=== PATIENT | female | born 1980 | race Caucasian/White ===

== ENCOUNTER 2023-11-03 16:13 | Emergency (ER) | payer OTHER, SELFPAY ==
[2023-11-03 16:38] VITALS: BP 114/67; PULSE 87; RESP 20; TEMP 37.1; O2SAT 98
--- NOTE | 2023-11-03 17:10 | ED.URI ---
HPI - URI/Sore Throat General Chief Complaint: Upper Respiratory Infection Stated Complaint: Throat History of Present Illness HPI Narrative: 43-year-old female presented for complaint of sore throat for 5 days. Denies any associated symptoms. She has taken Tylenol and DayQuil NyQuil. Related Data Home Medications Medication Instructions Recorded Confirmed bupropion HCl 150 mg tablet,12 hr mg PO 11/03/23 sustained-release dulaglutide 4.5 mg/0.5 mL mg subcut 11/03/23 subcutaneous pen injector (Trulicity) lamotrigine 200 mg tablet mg 11/03/23 meloxicam 15 mg tablet mg 11/03/23 quetiapine 50 mg tablet mg 11/03/23 tizanidine 4 mg capsule mg 11/03/23 Allergies Allergy/AdvReac Type Severity Reaction Status Date / Time No Known Allergies Allergy Verified 11/03/23 16:41 Review of Systems Review of Systems: CONSTITUTIONAL: Denies body aches, fever, chills, or sweats. EYES: Denies visual changes, redness, or discharge. ENT: reports sore throat Denies rhinorrhea, congestion, or otalgia. CARDIOVASCULAR: Denies chest pain, palpitations, or edema. RESPIRATORY: Denies dyspnea. GASTROINTESTINAL: Denies abdominal pain, nausea, vomiting, or diarrhea. SKIN: Denies rash, itching, or wounds. MUSCULOSKELETAL: Denies back pain, joint pain, or myalgia. NEUROLOGIC: Denies headache PMFSH Past Medical History Medical History (Updated 11/03/23 @ 17:17 by Sushma Reeves APRN) Anxiety Exam Narrative: GENERAL: mildly Ill-appearing, no acute distress. EYES: conjunctivae clear ENT: Mucous membranes moist. TM pearly llamas with normal light reflex bilaterally; no tragal tenderness. Oropharynx erythematous Tonsils enlarged 2+ with exudate. No drooling, no hoarseness, no trismus, uvula midline. No tripod positioning, hot potato voice, or soft palate swelling. NECK: Supple. Bilateral anterior cervical lymphadenopathy CHEST: Clear to auscultation, breath sounds equal. No respiratory distress, speaks in full sentences. HEART: Regular rate and rhythm. No murmur heard. SKIN: Warm, dry, no rash. NEURO: Alert and oriented x3. Course Course Emergency Course: Patient is aware of diagnosis, understands and agrees to treatment plan. Anticipatory guidance given. Patient agrees to follow-up as directed and is aware of reasons to seek care at the emergency department. Portions of this record may have been created with voice recognition software Level of Care: Express Care Visit Vital Signs Vital signs: Vital Signs Temperature 98.8 F 11/03/23 16:38 Pulse Rate 87 11/03/23 16:38 Respiratory Rate 20 11/03/23 16:38 Blood Pressure 114/67 11/03/23 16:38 Pulse Oximetry 98 11/03/23 16:38 Temperature 98.8 F 11/03/23 16:38 Pulse Rate 87 11/03/23 16:38 Respiratory Rate 20 11/03/23 16:38 Blood Pressure 114/67 11/03/23 16:38 Pulse Oximetry 98 11/03/23 16:38 MDM - URI/Sore Throat MDM Narrative Medical decision making narrative: POS strep result reviewed with pt. Advise supportive treatments. Patient is appropriate for outpatient treatment and follow-up. Differential Diagnosis Differential diagnosis: Likely upper respiratory infection, viral infection and pharyngitis Discharge Plan Discharge Clinical Impression: Strep pharyngitis Patient Disposition: Home, Self-Care Condition: Stable Instructions: Antibiotic Form, Strep Throat (ED) Additional Instructions: - Take the antibiotic as directed. Fever and sore throat typically resolve within one to three days. Most patients can return to work, after 12 to 24 hours of antibiotic therapy, provided you are fever free and otherwise well. -Eat and drink things that are easy to swallow, like soft foods, cool liquids, tea with honey, or popsicles . -Salt water gargles and/or may use topical anesthetic ( Chloraseptic spray) or lozenges to relieve dryness or throat pain -Alternate Tylenol and ibuprofen as needed for p
[2023-11-03 17:27] LABS: EDSTREPNEGPOS1 Positive (Negative)
== END 2023-11-03 17:15 | disposition home or self-care (01) ==
PROVIDERS: Emergency Provider Nurse Practitioner Family
DX: J02.0 Streptococcal pharyngitis (principal)
CPT/HCPCS: 87880; 99213; G0463

== ENCOUNTER 2024-02-13 18:02 | Emergency (ER) | payer OTHER, SELFPAY ==
[2024-02-13 18:07] VITALS: BP 120/69; PULSE 73; RESP 18; TEMP 36.4; O2SAT 99
--- NOTE | 2024-02-13 18:44 | ED_ITS ---
HPI - Dental/Oral General Chief complaint: Dental/Oral Stated complaint: tooth infection Source: patient Mode of arrival: ambulatory History of Present Illness HPI Narrative: 43-year-old female presented for complaint of right upper back tooth pain for 4 days. She states the tooth broke 4 days ago. Since then she took left over amoxicillin and has applied ice, ibuprofen and numbing medicine without improvement. She is scheduled with the dentist in 1 week. MD Complaint: tooth pain Related Data Home Medications ?Medication ?Instructions ?Recorded ?Confirmed ?Last Taken ?Type bupropion HCl 150 mg tablet,12 hr 150 mg PO BID 11/03/23 11/03/23 Unknown History sustained-release lamotrigine 200 mg tablet 300 mg PO DAILY 11/03/23 11/03/23 Unknown History meloxicam 15 mg tablet 7.5 mg PO BID 11/03/23 11/03/23 Unknown History quetiapine 50 mg tablet See Rx Instructions .Route .COMPLEX 11/03/23 11/03/23 Unknown History Allergies Allergy/AdvReac Type Severity Reaction Status Date / Time No Known Allergies Allergy Verified 02/13/24 18:15 Review of Systems Review of Systems: CONSTITUTIONAL: Denies body aches, fever, chills ENT: Denies rhinorrhea, congestion, sore throat, or otalgia. Reports dental pain CARDIOVASCULAR: Denies chest pain, palpitations RESPIRATORY: Denies cough or dyspnea. SKIN: Denies rash, itching, or wounds. MUSCULOSKELETAL: Denies myalgia. NEUROLOGIC: Denies headache, numbness, tingling, or weakness. [facility] Past Medical History Medical History Anxiety Comments At time of signature, I have reviewed and agree with nursing past medical, surgical, social and family history unless otherwise noted. Please see nursing chart for further information. There is no relevant family history pertinent to the presenting complaint Exam Narrative: GENERAL: Appears in pain; no acute distress. HEAD: Normocephalic, atraumatic. EYES: EOMI. No redness or drainage. Conjunctivae normal. ENT: Dental pain location of #1, no erythema or swelling to gums; endorses tender with palpation. Mucous membranes pink and moist. TMs normal bilaterally. Throat normal. no dysphagia, odynophagia, dysphonia, or dyspnea. No uvular deviation or soft palate edema. NECK: Normal AROM. No lymphadenopathy. no induration below mandible, no neck pain CHEST: No respiratory distress. Clear to auscultation. HEART: Regular rate and rhythm. No murmur appreciated. SKIN: Warm, dry, no rash. Normal skin turgor. NEURO: No focal deficits. Alert and oriented x3. Gait steady. Course Course Emergency Course: Patient is aware of diagnosis, understands and agrees to treatment plan. Anticipatory guidance given. Patient agrees to follow-up as directed and is aware of reasons to seek care at the emergency department. Portions of this record may have been created with voice recognition software Level of Care: Express Care Visit Vital Signs Vital signs: Vital Signs Temperature 97.6 F 02/13/24 18:07 Pulse Rate 73 02/13/24 18:07 Respiratory Rate 18 02/13/24 18:07 Blood Pressure 120/69 02/13/24 18:07 Pulse Oximetry 99 02/13/24 18:07 Oxygen Delivery Room Air 02/13/24 18:07 Temperature 97.6 F 02/13/24 18:07 Pulse Rate 73 02/13/24 18:07 Respiratory Rate 18 02/13/24 18:07 Blood Pressure 120/69 02/13/24 18:07 Pulse Oximetry 99 02/13/24 18:07 Oxygen Delivery Room Air 02/13/24 18:07 MDM - Dental/Oral MDM Narrative Medical decision making narrative: Patients pain and complaint coupled with physical findings are consistent with dentalgia/ dental abscess There are no focal signs of space occupying lesions that are compromising to the airway; Patient is non-toxic appearing. The floor of the mouth is soft with no signs of Adair's Angina. Patient is without trismus or drooling and able to swallow secretions. Patient is felt appropriate for discharge home with dental follow up. Differential Diagnosis Differential diagnosis: Likely gingival abscess, dental caries, toothache, dental abscess, fracture of tooth and aphthous ulcer Discharge Plan Discharge Clinical Impression: Toothache Patient Disposition: Home, Self-Care Condition: Stable Instructions: Antibiotic Form, Toothache (ED) Additional Instructions: Take antibiotic as directed May apply heat or ice to the face Gentle brushing and flossing. Rinse mouth with warm salt water at least 2 times a day. Alternate Tylenol and ibuprofen as needed for pain Follow-up with the dentist as scheduled Go to the ER for worsening symptoms or concerns Patient Language: Frisian Prescriptions: New ibuprofen 800 mg tablet 800 mg PO TID PRN (Reason: pain) Qty: 15 0RF lidocaine HCl [Lidocaine Viscous] 2 % solution 1 applic mucous membrane TID PRN (Reason: pain) Qty: 100 0RF Rx Instructions: apply with cotton swab to site of pain amoxicillin-pot clavulanate 875-125 mg tablet 1 tablet PO Q12H 7 Days Qty: 14 0RF No Action bupropion HCl 150 mg tablet sustained-release 12 hr 150 mg PO BID lamotrigine 200 mg tablet 300 mg PO DAILY meloxicam 15 mg tablet 7.5 mg PO BID quetiapine 50 mg tablet See Rx Instructions .ROUTE .COMPLEX Rx Instructions: as prescribed Follow-up/Referrals: PHYSICIAN NOT ON STAFF,NONSTAFF [Primary Care Provider] - Time of Disposition: 18:52
== END 2024-02-13 18:55 | disposition home or self-care (01) ==
PROVIDERS: Emergency Provider Nurse Practitioner Family
DX: K08.89 Other specified disorders of teeth and supporting structures (principal); F41.9 Anxiety disorder, unspecified
CPT/HCPCS: 99213; G0463

== ENCOUNTER 2024-05-10 15:13 | Emergency (ER) | payer OTHER, SELFPAY ==
[2024-05-10 15:21] VITALS: BP 130/73; PULSE 65; RESP 16; TEMP 36.1; O2SAT 99
--- NOTE | 2024-05-10 15:25 | ED.WOUNDLAC ---
HPI - Wound/Laceration General Chief Complaint: Wound/Laceration Stated Complaint: remove stitches Time Seen by Provider: 05/10/24 15:25 Source: patient, RN notes reviewed and old records reviewed Mode of arrival: ambulatory Limitations: no limitations History of Present Illness HPI narrative: 44-year-old presents to the [facility] requesting to have sutures removed that were placed by her primary doctor. States that she had a cyst removed. Procedure was done 1st which. Patient brought in her my chart reviewed the discharge papers which specifically said that she can have the sutures removed by her primary, urgent care or ER. Patient is clinic with [facility] in [facility] Related Data Home Medications ?Medication ?Instructions ?Recorded ?Confirmed ?Last Taken ?Type bupropion HCl 150 mg tablet,12 hr 150 mg PO BID 11/03/23 11/03/23 Unknown History sustained-release lamotrigine 200 mg tablet 300 mg PO DAILY 11/03/23 11/03/23 Unknown History meloxicam 15 mg tablet 7.5 mg PO BID 11/03/23 11/03/23 Unknown History quetiapine 50 mg tablet See Rx Instructions .Route .COMPLEX 11/03/23 11/03/23 Unknown History Allergies Allergy/AdvReac Type Severity Reaction Status Date / Time No Known Allergies Allergy Verified 05/10/24 15:25 Review of Systems Review of Systems: All systems reviewed & are unremarkable except as noted in HPI and below Constitutional: Constitutional: Reports no additional constitutional complaints ENT: Reports system reviewed and no additional complaints, except as documented Cardiovascular: Cardiovascular: Reports no additional cardiovascular complaints, Denies chest pain and Denies dyspnea Respiratory: Respiratory: Reports no additional respiratory complaints, Denies chest congestion, Denies cough and Denies dyspnea Musculoskeletal: Musculoskeletal: Reports no additional musculoskeletal complaints Integumentary/Breasts: Skin/Breast: Reports as per HPI [facility] Past Medical History Medical History Anxiety Comments At the time of my signature, I reviewed and agree with the nursing past medical, surgical, social, and family history. There is no relevant family history pertinent to the patient complaint. Exam Const: General: cooperative, healthy appearing, comfortable, no acute distress, well developed, alert and well nourished Nutritional Appearance: well nourished Orientation/consciousness: patient oriented x3 Limitations: no limitations HENMT: Head: normal to inspection Eyes: General: appearance normal, both eyes and all related structures Alignment and Position: alignment normal Neck: Neck: normal visual inspection, full ROM, no lymphadenopathy and no meningeal signs Chest: Chest palpation & inspection: normal inspection of the chest Resp: Effort & Inspection: normal respiratory effort and able to speak in complete sentences Auscultation: clear to auscultation bilaterally, no crackles, no rales, no rhonchi and no wheezes Cardio: Rate: regular rate Skin: General skin exam: normal color and no rashes or lesions noted Other: well-approximated he healed area to the left rib area. Patient reports that she had an area removed, sutured with 8 sutures. No signs of infection some skin irritation noted from the tape. A no cellulitic changes. Neuro: General: patient oriented x3, gait normal, moves all extremities and no meningeal signs Cognition (Neuro): normal cognition Speech: normal speech Gait exam (Neuro): Normal gait present Extrem: General: normal to inspection, full ROM, capillary refill normal and normal gait Psych: Appearance: grossly normal and well kempt Mental Status: mental status grossly normal Speech and movement: Normal speech and movement present and Clear speech present Affect: normal affect Attitude: cooperative Course Course Emergency Course: Area cleaned with Betadine, patted dry, 8 sutures removed. Patient tolerated well Level of Care: Express Care Visit Vital Signs Vital signs: Vital Signs Temperature 97 F L 05/10/24 15:21 Pulse Rate 65 05/10/24 15:21 Respiratory Rate 16 05/10/24 15:21 Blood Pressure 130/73 05/10/24 15:21 Pulse Oximetry 99 05/10/24 15:21 Oxygen Delivery Room Air 05/10/24 15:21 Temperature 97 F L 05/10/24 15:21 Pulse Rate 65 05/10/24 15:21 Respiratory Rate 16 05/10/24 15:21 Blood Pressure 130/73 05/10/24 15:21 Pulse Oximetry 99 05/10/24 15:21 Oxygen Delivery Room Air 05/10/24 15:21 Reviewed MDM - Wound/Laceration MDM Narrative Medical decision making narrative: patient sitting comfortably in exam room. Nontoxic, vitals stable.\ Patient presents for suture removal, reviewed the note in her my chart. Sutures removed patient appropriate for outpatient treatment and follow-up Discharge instructions reviewed with patient, as well as provided in writing per nursing staff. The instructions also include specific and strict return/GO TO THE ER as well as f/u information. All questions have been answered, and the patient deny any further questions with discharge and discharge plan. Some parts of this dictation were generated by voice recognition software and may contain typographical and/or grammatical inaccuracies. Differential Diagnosis Differential diagnosis: Likely laceration and other Critical Care Time Critical Care Time Critical Care Time: No Discharge Plan Discharge Clinical Impression: Encounter for removal of sutures Patient Disposition: Home, Self-Care Condition: Stable Instructions: Acute Wounds (ED) Additional Instructions: keep area clean and dry. Wash with warm soapy water, pat dry. You can apply Aquaphor or bacitracin to the area follow-up with primary care provider for new or worsening symptoms go directly to the emergency room Patient Language: Maltese Prescriptions: No Action bupropion HCl 150 mg tablet sustained-release 12 hr 150 mg PO BID lamotrigine 200 mg tablet 300 mg PO DAILY meloxicam 15 mg tablet 7.5 mg PO BID quetiapine 50 mg tablet See Rx Instructions .ROUTE .COMPLEX Rx Instructions: as prescribed ibuprofen 800 mg tablet 800 mg PO TID PRN (Reason: pain) Qty: 15 0RF lidocaine HCl [Lidocaine Viscous] 2 % solution 1 applic mucous membrane TID PRN (Reason: pain) Qty: 100 0RF Rx Instructions: apply with cotton swab to site of pain Follow-up/Referrals: PHYSICIAN NOT ON STAFF,NONSTAFF [Primary Care Provider] - Time of Disposition: 15:43
--- OUTSIDE RECORDS SUMMARY | 2024-05-10 16:46 | XMS_ITS | Referral Summary ---
Author Organization [facility] [place] [address] Address [address] [place] [address] Care Team Providers Care Principal Programmer Name Role Phone Unknown, Geovannanfile Primary Care Provider Unavail able Allergies No known active allergies Medications benzonatate (TESSALON) 100 mg capsule Take 1 capsule (100 mg total) by mouth 3 (three) times a day as needed 03/13/2023 Active buPROPion SR (WELLBUTRIN SR) 150 mg 12 hr tablet Take 1 tablet (150 mg total) by mouth 2 (two) times a day 11/02/2023 Active Trulicity 4.5 mg/0.5 mL pen injector Inject 0.5 mL (4.5 mg total) under the skin once a week 10/30/2023 Active gabapentin (NEURONTIN) 100 mg capsule Take 1 capsule (100 mg total) by mouth 07/21/2023 Active lamoTRIgine (LaMICtal) 200 mg tablet TAKE 1 & 1/2 (ONE & ONE-HALF) TABLETS BY MOUTH TWICE DAILY 10/31/2023 Active predniSONE (DELTASONE) 50 mg tablet Take 1 tablet (50 mg) by mouth daily 11/03/2023 Active QUEtiapine (SEROquel) 50 mg tablet 1 tablet (50 mg total) 05/26/2023 Active TiZANidine (ZANAFLEX) 4 mg capsule Take 1 capsule (4 mg total) by mouth 08/29/2023 Active naproxen (Naprosyn) 500 mg tablet Take 1 tablet (500 mg total) by mouth 2 (two) times a day with meals 30 tablet 11/10/2023 Active Active Problems No known active problems Social History Tobacco Use Types Packs/Day Years Used Date Smoking Tobacco: Never Assessed Comments Unknown Sex and Gender Information Value Date Recorded Sex Assigned at Not on file Legal Sex Female 1:33 PM CDT Gender Identity Not on file Sexual Orientation Not on file Last Filed Vital Signs Vital Sign Reading Time Taken Comments Blood Pressure 104/70 11/10/2023 5:13 PM CDT Pulse 74 11/10/2023 5:13 PM CDT Temperature 36.2 C (97.1 F) 11/10/2023 5:13 PM CDT Respiratory Rate 18 11/10/2023 5:13 PM CDT Oxygen Saturation 96% 11/10/2023 5:13 PM CDT Inhaled Oxygen Concentration - - Weight 102.5 kg (226 lb) 11/10/2023 5:13 PM CDT Height 168.9 cm (5' 6.5 ) 11/10/2023 5:13 PM CDT Body Mass Index 35.93 11/10/2023 5:13 PM CDT Plan of Treatment Not on file Insurance [facility] Care Teams Principal Programmer Relationship Specialty Start Date End Date Unknown, Notinfile PCP - General 04/22/23
--- OUTSIDE RECORDS SUMMARY | 2024-05-10 16:46 | XMS_ITS | Clinical Summary ---
Author Organization [facility] [place] [address] Address [address] [place] [address] Care Team Providers Care Shop Laborer Name Role Phone Unknown, Geovannanfile Primary Care [...] Active Active Problems No known active problems Surgical History Surgery Date Site/Laterality Comments FLUORO GUIDED ASPIRATION OR INJECTION LARGE JOINT BILATERAL 05/03/2022 Bilateral FLUORO GUIDED ASPIRATION OR INJECTION LARGE JOINT BILATERAL 03/08/2020 Bilateral FLUORO GUIDED ASPIRATION OR INJECTION LARGE JOINT BILATERAL 10/07/2019 Bilateral FLUORO GUIDED ASPIRATION OR INJECTION LARGE JOINT BILATERAL 03/31/2019 Bilateral US GUIDED THORACENTESIS 05/15/2020 N/A US GUIDED THORACENTESIS 03/10/2020 N/A Social History Tobacco Use Types Packs/Day Years Used Date Smoking Tobacco: Never Assessed Comments Unknown Sex and Gender Information Value Date Recorded Sex Assigned at Not on file Legal Sex Female 1:33 PM CDT Gender Identity Not on file Sexual Orientation Not on file Obstetrics History Last Filed Vital Signs Vital Sign Reading [...] 11/10/2023 5:13 PM CDT Plan of Treatment Health Maintenance Due Date Last Done Comments Cervical Cancer Screening 1978 Colon Cancer Screening-Colonoscopy 1978 Depression Screening 1978 Hepatitis C Screening 1978 Hepatitis B Screening 1996 Regular Well Visit/Exam 18-64 1996 Breast Cancer Screening-Mammogram 10/31/2021 10/31/2020, 10/31/2020, 06/17/2018 Influenza Vaccine (#1) 2023 DTaP/Tdap/Td Vaccine (2 - Td or Tdap) 03/31/2029 03/31/2019 HPV Vaccines Aged Out No longer eligi ble based on patient's age to complete this topic Pneumococcal vaccine <65 Aged Out No longer eligible based on patient's age to complete this topic Insurance [facility] Care Teams Shop Laborer Relationship Specialty Start Date End Date Unknown, Notinfile PCP - General 04/22/23
== END 2024-05-10 15:45 | disposition home or self-care (01) ==
PROVIDERS: Emergency Provider Nurse Practitioner
DX: Z48.02 Encounter for removal of sutures (principal); F41.9 Anxiety disorder, unspecified
CPT/HCPCS: 99211; G0463

== ENCOUNTER 2024-05-17 15:32 | Emergency (ER) | payer OTHER, SELFPAY ==
[2024-05-17 15:38] VITALS: BP 122/66; PULSE 64; RESP 16; TEMP 36.4; O2SAT 99
--- OUTSIDE RECORDS SUMMARY | 2024-05-17 17:33 | XMS_ITS | Clinical Summary ---
Author Organization [facility] Address [address] [place] [address] Care Team Providers Care Orthopedic Dentist Name Role Phone Cj Almazan Primary Care Provider [phone] Unknown, Notinfile Unavailable Unavailable Allergies No known active allergies Medications benzonatate [...] day with meals 30 tablet 11/10/2023 Active ketorolac (TORADOL) 10 mg tablet Take 1 tablet (10 mg total) by mouth every 6 (six) hours as needed for pain 20 tablet 05/11/2024 Active HYDROcodone-jaime taminophen (NORCO) 5-325 mg per tabletIndicatio ns:Pain Take 1 tablet by mouth every 6 (six) hours as needed for pain for up to 10 doses 10 tablet 05/11/2024 Active cetirizine (ZyrTEC) 10 mg tablet Take 1 tablet (10 mg total) by mouth daily 30 tablet 05/11/2024 06/11/19 25 Active hydrOXYzine (ATARAX) 25 mg tablet Take 1 tablet (25 mg total) by mouth every 6 (six) hours 12 tablet 05/11/2024 Active cephalexin (KEFLEX) 500 mg capsuleIndicati ons:Skin/Soft Tissue Infection Take 1 capsule (500 mg total) by mouth 3 (three) times a day for 5 days 15 capsule 05/11/2024 05/17/19 25 Active Problems No known active problems Encounters Date Type Department Care Team Description 05/11/2024 7:02 PM CDT - 05/11/2024 8:03 PM CDT Emergency [facility] Emergency Department [address] [place] [id number] Visit for wound check (Primary Dx) Discharge Disposition: Discharge to home or self care from Last 3 Months Surgical History Surgery Date Site/Laterality Comments FLUORO [...] Years Used Date Smoking Tobacco: Never Assessed Personal Safety Answer Date Recorded Have you ever been in or are you currently in a harmful physical or emotional relationship or is someone making you feel afraid or unsafe? Denies 05/11/2024 Comments Unknown Sex and Gender Information Value Date Recorded Sex Assigned at Not on file Legal Sex Female 1:33 PM CDT Gender Identity Not on file Sexual Orientation Not on file Obstetrics History Last Filed Vital Signs Vital Sign Reading Time Taken Comments Blood Pressure 120/74 05/11/2024 8:03 PM CDT Pulse 74 05/11/2024 8:03 PM CDT Temperature 36.5 C (97.7 F) 05/11/2024 6:07 PM CDT Respiratory Rate 20 05/11/2024 8:03 PM CDT Oxygen Saturation 98% 05/11/2024 8:03 PM CDT Inhaled Oxygen Concentration - - Weight 104.8 kg (231 lb) 05/11/2024 6:07 PM CDT Height 167.6 cm (5' 6 ) 05/11/2024 6:07 PM CDT Body Mass Index 37.28 05/11/2024 6:07 PM CDT Plan of Treatment Health Maintenance Due Date Last Done Comments Cervical Cancer Screening 1978 Colon Cancer Screening-Colonoscopy 1978 Depression Screening 1978 Hepatitis C Screening 1978 Hepatitis B Screening 1996 Regular Well Visit/Exam 18-64 1996 Breast Cancer Screening-Mammogram 10/31/2021 10/31/2020, 10/31/2020, 06/17/2018 Influenza Vaccine (Season Ended) 2024 DTaP/Tdap/Td Vaccine (2 - Td or Tdap) 03/31/2029 03/31/2019 HPV Vaccines Aged Out No longer eligi ble based on patient's age to complete this topic Pneumococcal vaccine <65 Aged Out No longer eligible based on patient's age to complete this topic Insurance [facility] Care Teams Orthopedic Dentist Relationship Specialty Start Date End Date Cj Almazan DO [address] [place], [place] [id number] PCP - General Family Medicine 05/11/24 Unknown, Notinfile 05/11/24
--- OUTSIDE RECORDS SUMMARY | 2024-05-17 17:33 | XMS_ITS | Referral Summary ---
Author Organization [facility] Address [address] [place] [address] Care Team Providers Care Mine Car Repairer Name Role Phone Cj Almazan DO Primary Care Provider [phone] Unknown, Notinfile Unavailable Unavailable Encounters Date Type Department Care Team Description 05/11/2024 7:02 PM CDT - 05/11/2024 8:03 PM CDT Emergency [facility] Emergency Department [address], [place] [id number] Visit for wound check (Primary Dx) Discharge Disposition: Discharge to home or self care from Last 3 Months Allergies No known active allergies Medications benzonatate [...] 25 Active Problems No known active problems Social [...] 05/11/2024 6:07 PM CDT Plan of Treatment Not on file Insurance Care Teams Mine Car Repairer Relationship Specialty Start Date End Date Cj Almazan DO [address] [place], [place] [id number] PCP - General Family Medicine 05/11/24 Unknown, Notinfile 05/11/24
--- NOTE | 2024-05-17 18:56 | ED.WOUNDLAC ---
HPI - Wound/Laceration General Chief Complaint: Wound/Laceration Stated Complaint: Wound Check Source: patient and RN notes reviewed Mode of arrival: ambulatory Limitations: no limitations History of Present Illness HPI narrative: 44-year-old female presents to the [facility] for a wound check. Patient is that she had a cyst removed to the left lateral part of her back that were placed by her PCP. She came here approximately a week ago to get the sutures removed from it. On May 11 she then reports she went to the ER because she said that the cyst busted open after sutures were removed. She says he was discharged with keflex and Steri-Strips. She is worried the wound is infected again. She denies any pain, abnormal discharge, redness, swelling, fevers or any other concerns. Related Data Home Medications ?Medication ?Instructions ?Recorded ?Confirmed ?Last Taken ?Type bupropion HCl 150 mg tablet,12 hr 150 mg PO BID 11/03/23 11/03/23 Unknown History sustained-release lamotrigine 200 mg tablet 300 mg PO DAILY 11/03/23 11/03/23 Unknown History meloxicam 15 mg tablet 7.5 mg PO BID 11/03/23 11/03/23 Unknown History quetiapine 50 mg tablet See Rx Instructions .Route .COMPLEX 11/03/23 11/03/23 Unknown History Allergies Allergy/AdvReac Type Severity Reaction Status Date / Time No Known Allergies Allergy Verified 05/17/24 15:38 Review of Systems Review of Systems: CONSTITUTIONAL: Denies fever, chills, or sweats. EYES: Denies visual changes, redness, or discharge. ENT: Denies rhinorrhea, congestion, sore throat, or otalgia. CARDIOVASCULAR: Denies chest pain, palpitations, or edema. RESPIRATORY: Denies cough or dyspnea. GASTROINTESTINAL: Denies abdominal pain, nausea, vomiting, or diarrhea. GENITOURINARY: Denies dysuria or hematuria. SKIN: Denies rash or itching. Positive for wound MUSCULOSKELETAL: Denies back pain, joint pain, or myalgia. NEUROLOGIC: Denies headache, numbness, or weakness. PSYCHIATRIC: Denies anxiety or depression. All other systems reviewed are negative, except as documented in HPI. [facility] Past Medical History Medical History Anxiety Comments At the time of my signature, I reviewed and agree with the nursing past medical, surgical, social, and family history. There is no relevant family history pertinent to the patient complaint. Exam Narrative: GENERAL: This is a well-nourished, well-developed adult, in no apparent distress. They are non ill-appearing, nontoxic appearing. HEAD: normocephalic, atraumatic. EYES: Sclera clear/white. Vision is grossly intact. EARS: External ears normal, Hearing grossly intact. NOSE: External nose normal THROAT: Mucous membranes moist, NECK: Normal range of motion CARDIOVASCULAR: Regular rate and rhythm RESPIRATORY: Normal respiratory rate, and breathing is nonlabored, no respiratory distress SKIN: Left lateral mid back: Healing wound with granulation tissue measuring approximately 3 centimeters by 3 cm. Wound is at depth at skin surface. There is no signs of infection, no surrounding cellulitis or exudate. Steri-Strips are in place prior to arrival. NEURO: awake, alert, and oriented to person, place and time. There were no obvious focal neurologic abnormalities. BACK: Nontender without deformity. Course Course Emergency Course: Patient is aware of diagnosis, understands and agrees to treatment plan. Anticipatory guidance given. Patient agrees to follow-up as directed and is aware of reasons to seek care at the emergency department. Portions of this record may have been created with voice recognition software Level of Care: Express Care Visit Vital Signs Vital signs: Vital Signs Temperature 97.5 F L 05/17/24 15:38 Pulse Rate 64 05/17/24 15:38 Respiratory Rate 16 05/17/24 15:38 Blood Pressure 122/66 05/17/24 15:38 Pulse Oximetry 99 05/17/24 15:38 Oxygen Delivery Room Air 05/17/24 15:38 Temperature 97.5 F L 05/17/24 15:38 Pulse Rate 64 05/17/24 15:38 Respiratory Rate 16 05/17/24 15:38 Blood Pressure 122/66 05/17/24 15:38 Pulse Oximetry 99 05/17/24 15:38 Oxygen Delivery Room Air 05/17/24 15:38 Reviewed MDM - Wound/Laceration MDM Narrative Medical decision making narrative: Patient presents wound check, the wound appears to be healing well. Steri-Strips were removed as a been there for a week in the surface of the wound is at the skin depth. Band-Aid applied after removing Steri-Strips. Patient advised to apply nonadherent dressings and wound care was discussed. Discussed physical exam findings. Advised supportive measures and signs/symptoms to go to the ER. Pt is appropriate for outpt treatment and f/u. Differential Diagnosis Differential diagnosis: Likely abscess and other (Cellulitis, ulcer, ringworm) Critical Care Time Critical Care Time Critical Care Time: No Discharge Plan Discharge Clinical Impression: Visit for wound check Patient Disposition: Home Condition: Stable Instructions: Cellulitis (ED) Additional Instructions: Your wound is healing well. Please keep it covered until it is healed completely. Please use a nonstick dressing such as the Band-Aid or a nonadherent Telfa. Please wash it daily with mild soap and water. If you develop redness, green or yellow discharge, fevers, pain to the wound, or red streaking from the wound please go to the ER for further evaluation Patient Language: Thai Prescriptions: No Action bupropion HCl 150 mg tablet sustained-release 12 hr 150 mg PO BID lamotrigine 200 mg tablet 300 mg PO DAILY meloxicam 15 mg tablet 7.5 mg PO BID quetiapine 50 mg tablet See Rx Instructions .ROUTE .COMPLEX Rx Instructions: as prescribed ibuprofen 800 mg tablet 800 mg PO TID PRN (Reason: pain) Qty: 15 0RF Follow-up/Referrals: UNKNOWN,DOCTOR [Primary Care Provider] - Time of Disposition: 16:11
== END 2024-05-17 16:16 | disposition home or self-care (01) ==
DX: Z48.01 Encounter for change or removal of surgical wound dressing (principal); F41.9 Anxiety disorder, unspecified
CPT/HCPCS: 99212; G0463

== ENCOUNTER 2024-08-17 16:53 | Emergency (ER) | payer OTHER, SELFPAY ==
[2024-08-17 16:56] VITALS: BP 129/90; PULSE 73; RESP 20; TEMP 36.6; O2SAT 99
--- OUTSIDE RECORDS SUMMARY | 2024-08-17 16:56 | XMS_ITS | Clinical Summary ---
Author Organization [facility] Address [address] [place] [address] Care Team Providers Care Legal Billing Coordinator Name Role Phone Unknown, Notinfile Unavailable Unavailable Bambi Calzada NP Primary Care Provider [phone] Allergies No known active allergies Medications lamoTRIgine (LaMICtal) 200 mg tablet Take 1.5 tablets (300 mg total) by mouth 2 (two) times a day 270 tablet 3 06/18/19 25 026 Active ondansetron ODT (ZOFRAN-ODT) 4 mg disintegrating tablet Take 1 tablet (4 mg total) by mouth every 8 (eight) hours as needed for nausea 20 tablet 07/02/19 25 Active naltrexone (DEPADE) 50 mg tablet Take 1 tablet (50 mg total) by mouth daily 30 tablet 2 07/22/19 25 026 Active QUEtiapine (SEROquel) 50 mg tablet Take 1 tablet (50 mg total) by mouth nightly 90 tablet 3 07/22/19 25 026 Active meloxicam (MOBIC) 15 mg tablet Take 1 tablet (15 mg total) by mouth daily 90 tablet 3 07/22/19 25 026 Active buPROPion XL (WELLBUTRIN XL) 300 mg 24 hr tablet Take 1 tablet (300 mg total) by mouth every morning 90 tablet 3 07/22/19 25 026 Active varenicline tartrate (CHANTIX RONNA) 0.5 mg (11)- 1 mg (42) tablet USE DIRECTED ON PACKAGE INSTRUCTION S, TRY TO QUIT SMOKING AFTER 1 WEEK 53 tablet 07/28/19 25 Active fluoride, sodium, 1.1 % cream Apply 1 Units to teeth daily 51 g 1 07/30/19 25 026 Active buPROPion SR (WELLBUTRIN SR) 150 mg 12 hr tablet Take 1 tablet (150 mg total) by mouth 2 (two) times a day 11/02/19 24 025 Discontinued(A lternate therapy) QUEtiapine (SEROquel) 50 mg tablet 1 tablet (50 mg total) 05/26/19 24 025 Discontinued(R eorder) metFORMIN XR (GLUCOPHAGE XR) 500 mg 24 hr tablet 1 tablet (500 mg total) 04/01/19 25 025 Discontinued(P atient Reported) meloxicam (MOBIC) 15 mg tablet Take 1 tablet (15 mg total) by mouth 05/29/19 25 025 Discontinued(R eorder) naltrexone (DEPADE) 50 mg tablet Take 1 tablet (50 mg total) by mouth daily 30 tablet 2 06/18/19 25 025 Discontinued(R eorder) varenicline tartrate (CHANTIX RONNA) 0.5 mg (11)- 1 mg (42) tablet Use as directed on package instruction s, try to quit smoking after 1 week. 53 tablet 06/18/19 25 025 Discontinued fluoride, sodium, 1.1 % cream Apply 1 Units to teeth daily 51 g 1 06/18/19 25 025 Discontinued(R eorder) Active Problems Problem Noted Date Diagnosed Date Screening for malignant neoplasm of colon 2024 Assessment & Plan (07/21/2024 8:12 PM CDT): Orders: Ambulatory referral to Gastroenterology; Future Chronic pain of left knee 07/21/2024 Assessment & Plan (07/21/2024 8:12 PM CDT): Cigarette nicotine dependence in remission 07/21 Assessment & Plan (07/21/2024 8:12 PM CDT): Encounter for weight management 06/17/2024 Assessment & Plan (07/21/2024 8:12 PM CDT): Assessment & Plan (06/17/2024 7:35 PM CDT): Arthralgia 06/17/2024 Assessment & Plan (06/17/2024 7:35 PM CDT): Chronic pain of both shoulders 06/17/2024 Assessment & Plan (06/17/2024 7:35 PM CDT): Orders: Ambulatory referral to Orthopedic Surgery; Future Class 2 obesity without seri ous comorbidity with body mass index (BMI) of 37.0 to 37.9 in adult 06/17/2024 Assessment & Plan (07/21/2024 8:12 PM CDT): Assessment & Plan (06/17/2024 7:35 PM CDT): BMI 37.67. Discussed healthy diet, routine exercise and encouraged weight loss. Is already on bupropion and will add naltrexone in attempt to facilitate further weight loss. Encounter for medical examination to establish c are 06/16/2024 Assessment & Plan (06/17/2024 7:35 PM CDT): Need for hepatitis C screening test 06/16/2024 Assessment & Plan (06/17/2024 7:35 PM CDT): Encounter for screening mamm ogram for malignant neoplasm of breast 06/16/2024 Assessment & Plan (06/17/2024 7:35 PM CDT): Orders: SCREENING MAMMOGRAM BILATERAL W PEPITO Screening for colon cancer 06/16/2024 Assessment & Plan (06/17/2024 7:35 PM CDT): Orders: Ambulatory referral to Gastroenterology; Future Need for hepatitis B screening test 06/16/2024 Assessment & Plan (06/17/2024 7:35 PM CDT): Chronic right shoulder pain 08/29/2022 Biliary dyskinesia 03/10/2020 Esophageal reflux 03/10/2020 Irritable bowel syndrome 03/10/2020 Marijuana abuse 03/10/2020 Tobacco smoker within last 12 months 03/10/2020 Cocaine abuse 02/25/2019 QT prolongation 02/25/2019 Bipolar affective disorder in remission 02/24/19 Assessment & Plan (06/17/2024 7:35 PM CDT): Chronic migraine without aura 02/20/2019 Diphenhydramine overdose, in tentional self-harm, initial encounter 02/20/2019 Calcium channel eneida overdose 02/20/2019 Polysubstance overdose 02/20/2019 Posttraumatic stress disorder 11/08/2011 Encounters Date Type Department Care Team Description 08/16/2024 Telephone [facility] [address] [place] [phone] Roxanne Guerra, DO reschedule appt 07/22/2024 Telephone [facility] Primary Care at [address] [phone] Bambi Calzada, SWITCH HOUSE OPERATOR Forms Request 07/21/2024 3:30 PM CDT Office Visit [facility] Primary Care at [address] [phone] Bambi Calzada NP Encounter for weight management (Primary Dx); Chronic pain of left knee; Cigarette nicotine dependence in remission; Screening for malignant neoplasm of colon; Class 2 obesity without serious comorbidity with body mass index (BMI) of 37.0 to 37.9 in adult, unspecified obesity type 07/19/2024 Telephone [facility] Primary Care at [address] [place] [phone] Bambi Calzada, SWITCH HOUSE OPERATOR Forms Request 07/08/2024 Telephone [facility] [address] [place] [address] [address] [place] [phone] Keyur Granados MD Bilateral shoulder referral 07/01/2024 Orders Only [facility] Primary Care at [address] [place] [phone] Bambi Calzada NP 06/21/2024 Telephone [facility] Gastroenterology at [address] [place] [phone] Nicki Payne MA Schedule Colonoscopy 06/17/2024 3:00 PM CDT Office Visit [facility] Primary Care at [address] [place] [phone] Bambi Calzada NP Encounter for medical examination to establish care (Primary Dx); Chronic pain of both shoulders; Bipolar affective disorder in remission; Arthralgia, unspecified joint; Need for hepatitis C screening test; Encounter for screening mammogram for malignant neoplasm of breast; Screening for colon cancer; Need for hepatitis B screening test; Encounter for weight management; Class 2 obesity without serious comorbidity with body mass index (BMI) of 37.0 to 37.9 in adult, unspecified obesity type from Last 3 Months Immunizations Immunization Administration Dates Next Due Topguest (J&J) SARS-CoV-2 Vaccination 09/05/2020 Tdap 03/31/2019 Surgical History Surgery Date Site/Laterality Comments FLUORO GUIDED ASPIRATION OR INJECTION LARGE JOINT BILATERAL 05/03/2022 Bilateral FLUORO GUIDED ASPIRATION OR INJECTION LARGE JOINT BILATERAL 03/08/2020 Bilateral FLUORO GUIDED ASPIRATION OR INJECTION LARGE JOINT BILATERAL 10/07/2019 Bilateral FLUORO GUIDED ASPIRATION OR INJECTION LARGE JOINT BILATERAL 03/31/2019 Bilateral US GUIDED THORACENTESIS 05/15/2020 N/A US GUIDED THORACENTESIS 03/10/2020 N/A CHOLECYSTECTOMY JOINT REPLACEMENT TUBAL LIGATION Medical History Medical History Date Comments Substance abuse (HCC) Anxiety Depression Menstrual problem Family History Medical History Relation Name Comments Alcohol abuse Mother Relation Name Status Comments Mother Social History Tobacco Use Types Packs/Day Years Used Date Smoking Tobacco: Every Day Cigarettes Smokeless Tobacco: Never Tobacco Cessation:Ready to Q uit: Not Asked; Counseling Given: Not Answered PHQ-2 Answer Date Recorded PHQ-2 Total Score (If total score is 3 or more points, staff should administer the PHQ-9) 0 06/17/2024 Personal Safety Answer Date Recorded Have you ever been in or are you currently in a harmful physical or emotional relationship or is someone making you feel afraid or unsafe? Denies 05/11/2024 Comments No Sex and Gender Information Value Date Recorded Sex Assigned at Not on file Legal Sex Female 1:33 PM CDT Gender Identity Not on file Sexual Orientation Not on file Obstetrics History Para Term AB IAB SAB Ectopic Multiple Livin g Live Births 2 2 2 Date Outcome GA Total Labor Labor/2nd/3rd Weight Sex Type Anes PTL Loyda A1 A5 Name Clin Term Term Last Filed Vital Signs Vital Sign Reading Time Taken Comments Blood Pressure 110/68 07/21/2024 3:25 PM CDT Pulse 95 07/21/2024 3:25 PM CDT Temperature 36.9 C (98.4 F) 07/21/2024 3:25 PM CDT Respiratory Rate 20 05/11/2024 8:03 PM CDT Oxygen Saturation 98% 07/21/2024 3:25 PM CDT Inhaled Oxygen Concentration - - Weight 106 kg (233 lb 9.6 oz) 07/21/2024 3:25 PM CDT Height 167.6 cm (5' 5.98) 07/21/2024 3:25 PM CD T Body Mass Index 37.72 07/21/2024 3:25 PM CDT Plan of Treatment Upcoming Encounters Date Type Department Care Team (Late st Contact Info) Description 01/21/2025 11:00 AM FRENCH POLISHER Hospital Encounter [address] [phone] Garcia MD [address] [place] [address] 01/21/2025 11:00 AM FRENCH POLISHER - 01/21/2025 11:30 AM FRENCH POLISHER Surgery [address] [address]Gustavo Garcia MD [address] [place] [address] COLONOSCOPY Scheduled Procedures Name Priority Associated Diagnoses Date/Ti me COLONOSCOPY Screening for colon cancer 01/21/2025 11:00 AM FRENCH POLISHER Health Maintenance Due Date Last Done Comments Cervical Cancer Screening 1978 Hepatitis C Screening 1978 Hepatitis B Screening 1996 Breast Cancer Screening-Mammogram 10/31/2021 10/31/2020, 06/17/2018 Covid-19 Vaccine (2 - season) 2023 09/05/2020 Influenza Vaccine (#1) 2024 Colon Cancer Screening-Colonoscopy 01/21/2025 Postponed from 1978 (Patient declined, but will receive in the future) Pneumococcal vaccine <65 (1 of 2 - PCV) 06/02/2025 Postponed from 1997 (Patient declined, but will receive in the future) Depression Screening 06/17/2025 06/17/2024 Regular Well Visit/Exam 18-64 06/17/2025 06/17/2024 DTaP/Tdap/Td Vaccine (2 - Td or Tdap) 03/31/2029 03/31/2019 Colon Cancer Screening-DNA Stool Discontinued HPV Vaccines Aged Out No longer eligi ble based on patient's age to complete this topic Insurance [facility] Care Teams Legal Billing Coordinator Relationship Specialty Start Date End Date Bambi Calzada NP [address] [facility] [address] [place] [address] PCP - General Family Medicine 06/17/24 Unknown, Notinfile 05/11/24
--- OUTSIDE RECORDS SUMMARY | 2024-08-17 16:56 | XMS_ITS | Encounter Summary ---
Author Organization [facility] Healthcare Address [address] [place] [address] Care Team Providers Care Research And Development Manager Name Role Phone Unknown, Notinfile Unavailable Unavailable Bambi Calzada DINING ROOM ATTENDANT Primary Care Provider [phone] Reason for Visit * Reason Onset Date Comments Forms Request 07/22/2024 Encounter Details Date Type Department Care Team (Late st Contact Info) Description 07/22/[address] [facility] Primary Care at [address] [place] [phone] Bambi Calzada, DINING ROOM ATTENDANT [address] [place] [address] Forms Request Social History Tobacco Use Types Packs/Day Years Used Date Smoking Tobacco: Every Day Cigarettes Smokeless Tobacco: Never PHQ-2 Answer Date Recorded PHQ-2 Total Score [...] on file Sexual Orientation Not on file documented as of this encounter Miscellaneous Notes * Telephone Encounter - Loren Gamble MA - 07/22/2024 3:27 PM CDT It's still at the front services agent in the patient greens picker folder * Telephone Encounter - Matt Escobar - 07/22/2024 2:26 PM CDT Forms Request Form requested: Other Form Form Name: Letter dated 07/19/24 in chart Date needed: Tomorrow How is patient delivering to office: In patient chart Who is form being returned to? Patient How to return form to patient:pickup at practice Additional Comments: Patient forgot to greens picker this letter after appt today. She is requesting it be ready for greens picker tomorrow. Sending high priority request Does message need to be routed? Yes-Action Needed documented in this encounter Plan of Treatment Upcoming Encounters Date Type Department Care Team (Late st Contact Info) Description 01/21/2025 11:00 AM MANAGEMENT LIAISON Hospital Encounter [address] [phone] Garcia MD [address] [address] 01/21/2025 11:00 AM MANAGEMENT LIAISON - 01/21/2025 11:30 AM MANAGEMENT LIAISON Surgery [address] [address]Gustavo Garcia MD [address] [place] [address] COLONOSCOPY Scheduled Procedures Name Priority Associated Diagnoses Date/Ti nh COLONOSCOPY Screening for colon cancer 01/21/2025 11:00 AM MANAGEMENT LIAISON documented as of this encounter Visit Diagnoses Not on filedocumented in this encounter Care Teams Research And Development Manager Relationship Specialty Start Date End Date Bambi Calzada NP [address] [facility] [address] [place] [address] PCP - General Family Medicine 06/17/24 Unknown, Notinfile 05/11/24 documented as of this encounter
--- OUTSIDE RECORDS SUMMARY | 2024-08-17 16:56 | XMS_ITS | Encounter Summary ---
Author Organization [facility] Healthcare Address [address] [place] [address] Care Team Providers Care Vaccines Solutions Specialist Name Role Phone Unknown, Notinfile Unavailable Unavailable Bambi Calzada PERSONNEL RECORDS CLERK Primary Care Provider [phone] Reason for Visit * Reason Onset Date Comments reschedule appt 08/16/2024 Encounter Details Date Type Department Care Team (Late st Contact Info) Description 08/16/2024 Telephone [facility] [address] [place] [address] Roxanne Guerra, DO [address] [place] [address] reschedule appt Social History Tobacco Use Types Packs/Day Years [...] encounter Miscellaneous Notes * Telephone Encounter - George Beach - 08/16/2024 1:07 PM CDT Patient canceled appt today in MyChart. I attempted to contact patient to reschedule. No answer/voicemail left to call and reschedule. documented in this encounter Plan of Treatment Upcoming Encounters Date Type Department Care Team (Late st Contact Info) Description 01/21/2025 11:00 AM KENO MANAGER Hospital Encounter [address] [address] Gustavo Harper MD [address] [facility] [address] [place] [address] 01/21/2025 11:00 AM KENO MANAGER - 01/21/2025 11:30 AM KENO MANAGER Surgery [address] [address] Gustavo Harper MD [address] [facility] [address] [place] [address] COLONOSCOPY Scheduled Procedures Name Priority Associated Diagnoses Date/Ti me COLONOSCOPY Screening for colon cancer 01/21/2025 11:00 AM KENO MANAGER documented as of this encounter Visit Diagnoses Not on filedocumented in this encounter Care Teams Vaccines Solutions Specialist Relationship Specialty Start Date End Date Bambi Calzada NP [address] [facility] [address] [place] [address] PCP - General Family Medicine 06/17/24 Unknown, Notinfile 05/11/24 documented as of this encounter
--- OUTSIDE RECORDS SUMMARY | 2024-08-17 16:56 | XMS_ITS | Referral Summary ---
Author Organization [facility] Address [address] [place] [address] Care Team Providers Care Carbon Plant Grinder Name Role Phone Unknown, Notinfile Unavailable Unavailable Bambi Calzada LOCOMOTIVE CRANE OPERATOR HELPER Primary Care Provider [phone] Encounters Date Type Department Care Team Description 08/16/2024 Telephone [facility] [address] [place] [address] Roxanne Guerra DO reschedule appt 07/22/2024 Telephone [facility] at [address] [address] Bambi Calzada NP Forms Request 07/21/2024 3:30 PM CDT Office Visit [facility] at [address] [address] Bambi Calzada, LOCOMOTIVE CRANE OPERATOR HELPER Encounter for weight management (Primary Dx); Chronic pain of left knee; Cigarette nicotine dependence in remission; Screening for malignant neoplasm of colon; Class 2 obesity without serious comorbidity with body mass index (BMI) of 37.0 to 37.9 in adult, unspecified obesity type 07/19/2024 Telephone [facility] Primary [facility] at [address] [place] [address] Bambi Calzada NP Forms Request 07/08/2024 Telephone [facility] [address] [place] [address] [address] [place] [phone] Keyur Granados MD Bilateral shoulder referral 07/01/2024 Orders Only [facility] Primary Care at [address] [place] [phone] Bambi Calzada NP 06/21/2024 Telephone [facility] Gastroenterology at [address] [place] [phone] Nicki Payne MA Schedule Colonoscopy 06/17/2024 3:00 PM CDT Office Visit [facility] Primary [facility] at [address] [place] [phone] Bambi Calzada NP Encounter for medical examination [...] unspecified obesity type from Last 3 Months Allergies No known active allergies Medications lamoTRIgine [...] Polysubstance overdose 02/20/2019 Posttraumatic stress disorder 11/08/2011 Immunizations Immunization Administration Dates Next Due Elevaate (J&J) SARS-CoV-2 Vaccination 09/05/2020 Tdap 03/31/2019 Social History Tobacco Use Types Packs/Day Years [...] st Contact Info) Description 01/21/2025 11:00 AM GREEN CHAIN OFFBEARER Hospital Encounter [address] [address] Gustavo Harper MD [address] [place] [address] 01/21/2025 11:00 AM GREEN CHAIN OFFBEARER - 01/21/2025 11:30 AM GREEN CHAIN OFFBEARER Surgery [address] [address] Gustavo Harper MD [address] [place] [address] COLONOSCOPY Scheduled Procedures Name Priority Associated Diagnoses Date/Ti me COLONOSCOPY Screening for colon cancer 01/21/2025 11:00 AM GREEN CHAIN OFFBEARER Insurance [facility] Care Teams Carbon Plant Grinder Relationship Specialty Start Date End Date Bambi Calzada NP [address] [facility] [address] [place] [address] PCP - General Family Medicine 06/17/24 Unknown, Notinfile 05/11/24
--- NOTE | 2024-08-17 16:59 | ECG_ITS ---
Test Date: 2024-08-17 17:06:34 Measurements Intervals [place] Rate: 63 P: 41 MD: 206 QRS: 46 QRSD: 90 T: 64 QT: 406 QTc: 418 Interpretive Statements SINUS RHYTHM NORMAL ECG WARNING: DATA QUALITY MAY AFFECT INTERPRETATION No previous ECG available for comparison Electronically Signed On 08-18-2024 07:41:32 CDT by Willie Moya M.D.
--- NOTE | 2024-08-17 17:31 | ED_ITS ---
HPI - Dizziness General Chief Complaint: Dizziness Stated Complaint: dizziness,fatigue Time Seen by Provider: 08/17/24 17:10 Source: patient and RN notes reviewed Mode of arrival: ambulatory Limitations: no limitations History of Present Illness HPI Narrative: 44-year-old female presents to the [facility] complaining dizziness, headaches, hot flashes, sweats, nausea for last 2-3 days. Patient denies any loss of consciousness, lightheadedness, near syncope. Patient reports when she gets dizzy and using when she is up standing is worse when she moves her head certain ways. Patient says she will have to sit down and rest for minute until symptoms subside approximately 15 minutes later did she can continue doing her normal activities. Patient says during the episodes she feels hot, nauseous, sweaty as well. Patient says she was stung by a bee back in [place] approximately 1 week ago continues to have redness and swelling to her left upper arm. Patient denies any tick bites while she was out there. She denies any fevers, focal weakness, slurred speech, facial droop, vision changes, double vision, blurry vision, body aches, chills, chest pain, shortness of breath, upper respiratory symptoms, cough, vomiting, diarrhea, abdominal pain, or any other symptoms. Patient has not tried anything [id number] to help with symptoms. Patient denies any significant past medical history. Related Data Home Medications ?Medication ?Instructions ?Recorded ?Confirmed ?Last Taken ?Type lamotrigine 200 mg tablet 300 mg PO DAILY 11/03/23 11/03/23 Unknown History meloxicam 15 mg tablet 7.5 mg PO BID 11/03/23 11/03/23 Unknown History quetiapine 50 mg tablet See Rx Instructions .Route .COMPLEX 11/03/23 11/03/23 Unknown History bupropion HCl 300 mg 24 hr tablet, mg PO 08/17/24 Unknown History extended release Allergies Allergy/AdvReac Type Severity Reaction Status Date / Time No Known Allergies Allergy Verified 08/17/24 17:02 Review of Systems Review of Systems: CONSTITUTIONAL: Denies fever, body aches, chills, or sweats. EYES: Denies visual changes, redness, or discharge. ENT: Denies rhinorrhea, congestion, sore throat, or otalgia. CARDIOVASCULAR: Denies chest pain, palpitations, lightheadedness, near-syncope, or edema. Past for dizziness. RESPIRATORY: Denies cough or dyspnea. GASTROINTESTINAL: Denies abdominal pain, vomiting, or diarrhea. Positive for nausea. GENITOURINARY: Denies dysuria or hematuria. SKIN: Denies rash or itching. MUSCULOSKELETAL: Denies back pain, joint pain, or myalgia. NEUROLOGIC: Positive for headaches. Negative for numbness, loss of consciousness, focal weakness, facial droop, slurred speech, seizures, or weakness. PSYCHIATRIC: Denies anxiety or depression. All other systems reviewed are negative, except as documented in HPI. [facility] Past Medical History Medical History Anxiety Comments At the time of my signature, I reviewed and agree with the nursing past medical, surgical, social, and family history. There is no relevant family history pertinent to the patient complaint. Exam Narrative: GENERAL: This is a well-nourished, well-developed adult, in no apparent distress. They are non ill-appearing, nontoxic appearing. HEAD: normocephalic, atraumatic. EYES: Sclera clear/white. Conjunctiva normal. Vision is grossly intact. Extraocular movements intact. Pupils PERRLA. Horizontal Unidirectional nystagmus present during follow the finger test. EARS: External ears normal, auditory canals clear and without drainage, TMs normal without perforation. Hearing grossly intact. NOSE: External nose normal with no obvious nasal discharge, nasal turbinates without redness, no rhinorrhea. THROAT: Mucous membranes moist, posterior pharynx clear, without erythema or swelling. Uvula midline. NECK: Neck supple, non-tender without lymphadenopathy, masses or thyromegaly. CARDIOVASCULAR: Regular rate and rhythm without murmurs, gallops, or rubs. RESPIRATORY: Clear to auscultation. Breath sounds equal bilaterally. No wheezes, rales, or rhonchi. GASTROINTESTINAL: Abdomen soft, non-tender, nondistended. Bowel sounds are active. No hepato-splenomegaly, or palpable masses. No guarding or rigidity. No rebound tenderness. SKIN: Area of erythema and swelling to patient's left upper medial posterior arm. Area of erythema and swelling measuring approximately 10 cm x 5 cm. No exudate, no area of fluctuance, no induration. Skin is blanchable touch. Skin is nontender. NEURO: awake, alert, and oriented to person, place and time. There were no obvio us focal neurologic abnormalities. No facial droop. Speech is clear. Corrective And Manual Arts Therapist strength equal bilaterally, 5/5. Leg strength equal bilaterally 5/5. Steady gait. No limb ataxia. Negative pronator drift. Cranial nerves 2-12 grossly intact. EXTREMITIES: No joint tenderness, effusion, or edema noted. BACK: Nontender without deformity. No CVA tenderness. Course Course Emergency Course: Portions of this record may have been created with voice recognition software Level of Care: Express Care Visit Vital Signs Vital signs: Vital Signs Temperature 97.8 F 08/17/24 16:56 Pulse Rate 73 08/17/24 16:56 Respiratory Rate 20 08/17/24 16:56 Blood Pressure 129/90 08/17/24 16:56 Pulse Oximetry 99 08/17/24 16:56 Oxygen Delivery Room Air 08/17/24 16:56 Temperature 97.8 F 08/17/24 16:56 Pulse Rate 73 08/17/24 16:56 Respiratory Rate 20 08/17/24 16:56 Blood Pressure 129/90 08/17/24 16:56 Pulse Oximetry 99 08/17/24 16:56 Oxygen Delivery Room Air 08/17/24 16:56 Reviewed MDM - Dizziness MDM Narrative Medical decision making narrative: NIH score 0. EKG sinus rhythm without ischemic findings. No heart blocks or arrhythmias noted. Patient's dizziness symptoms appear to be peripheral. There was nystagmus present that was unidirectional in horizontal. Patient was able to overcome the nystagmus to follow my finger however it made the patient dizzy. Will prescribe meclizine to help with dizziness. Given patient's persistent redness and swelling to her left arm will go ahead and cover for cellulitis with doxycycline. Offered patient ER transfer for further evaluation management of her symptoms and she declined and would like to try medications first. Neuro exam is unremarkable. Patient's mental capacity to make her own informed medical decisions. Patient hemodynamically stable. Discussed physical exam findings. Advised supportive measures and signs/symptoms to go to the ER. Pt is appropriate for outpt treatment and f/u. Differential Diagnosis Differential diagnosis: Likely benign paroxysmal positional vertigo, cerebrovascular accident and other (Cellulitis, vector borne illness, perimenopause cough viral illness) ECG Data EKG #1: Attestation: I personally reviewed and interpreted this ECG as follows: ECG completion date: 08/17/24 ECG completion time: 17:06 Prior ECG tracings: not available for review EKG Interpretation: normal rate, sinus rhythm, no ectopy, no ST changes, normal QRS, normal QT, NL axis and no acute changes Critical Care Time Critical Care Time Critical Care Time: No Discharge Plan Discharge Clinical Impression: Dizziness Patient Disposition: Home Condition: Stable Instructions: Antibiotic Form, Cellulitis (ED), Dizziness (ED) Additional Instructions: EKG is normal sinus rhythm today. With no signs of a heart attack. Dizziness may be related to vertigo. Please take meclizine as directed. Meclizine may make you drowsy to do not drive or operate machinery with it. Rest and drink plenty of fluids. You may supplement with electrolyte drinks such as Pedialyte or Gatorade. Please take doxycycline as directed. Please wear side screening for going to be outside while taking doxycycline. Wash the skin daily with mild soap and water. May take Tylenol or ibuprofen as needed for pain or fevers. Please follow-up PCP in 3-5 days. If your symptoms worsen, you developed uncontrollable dizziness, severe headaches, vision changes, one-sided weakness, slurred speech, facial droop, severe nausea and vomiting, loss of consciousness, or any other concerns please go to the ER immediately. Patient Language: Thai Prescriptions: New meclizine 25 mg tablet 25 mg PO TID PRN (Reason: dizziness or vertigo) 3 Days Qty: 20 0RF doxycycline monohydrate 100 mg capsule 100 mg PO BID 7 Days Qty: 14 0RF No Action bupropion HCl 300 mg tablet extended release 24 hr PO lamotrigine 200 mg tablet 300 mg PO DAILY meloxicam 15 mg tablet 7.5 mg PO BID quetiapine 50 mg tablet See Rx Instructions .ROUTE .COMPLEX Rx Instructions: as prescribed ibuprofen 800 mg tablet 800 mg PO TID PRN (Reason: pain) Qty: 15 0RF Follow-up/Referrals: PHYSICIAN,COMMAND AND CONTROL OFFICER [Primary Care Provider] - Time of Disposition: 17:28
== END 2024-08-17 17:34 | disposition home or self-care (01) ==
DX: R42 Dizziness and giddiness (principal); F41.9 Anxiety disorder, unspecified
CPT/HCPCS: 93005; 99213; G0463

== ENCOUNTER 2025-01-10 12:17 | Emergency (ER) | payer OTHER, SELFPAY ==
[2025-01-10 12:22] VITALS: BP 111/75; PULSE 86; RESP 18; TEMP 36.7; O2SAT 98
--- NOTE | 2025-01-10 12:37 | ED_ITS ---
HPI - URI/Sore Throat General Chief Complaint: Upper Respiratory Infection Stated Complaint: Poss Sinus Problem Time Seen by Provider: 01/10/25 12:37 Source: patient, RN notes reviewed and old records reviewed Mode of arrival: ambulatory Limitations: no limitations History of Present Illness HPI Narrative: 44 year old female who presents to [facility] care with complaints ofcough, sinus congestion drainage and sinus pressure tfor the past 5-6 days with no fevers. Patient reports history of sinus problems and sinus infections in the past. She states that she has been taking Zyrtec and Mucinex for her symptoms without improvement. Patient reports increased facial pressure when she bends over and some frontal headache pain. MD elicited complaint: cough, rhinorrhea, nasal congestion and sinus pain Pertinent past history: sinusitis Pain scale (0-10): 6 Description of mucous: yellow and green Able to tolerate fluids by mouth: Yes Treatments prior to arrival: other (zyrtec and Mucinex) Related Data Home Medications ?Medication ?Instructions ?Recorded ?Confirmed ?Last Taken ?Type lamotrigine 200 mg tablet 300 mg PO DAILY 11/03/23 Unknown History meloxicam 15 mg tablet 7.5 mg PO BID 11/03/2311/02 Unknown History quetiapine 50 mg tablet See Rx Instructions .Route . COMPLEX 11/03/23 11/03/23 Unknown History bupropion HCl 300 mg 24 hr tablet, mg PO 08/17/24 Unk nown History extended release bupropion HCl 150 mg tablet,12 hr mg PO 01/10/25 Unkn own History sustained-release Allergies Allergy/AdvReac Type Severity Reaction Status Date / Time No Known Allergies Allergy Verified 01/10/25 12:23 Review of Systems Review of Systems: CONSTITUTIONAL: reports malaise,no chills, sweats, or fever. EYES: Denies visual changes, redness, or discharge. ENT: Reports rhinorrhea, congestion, sinus pain, no otalgia and no sore throat. CARDIOVASCULAR: Denies chest pain, palpitations, or edema. RESPIRATORY: Reports cough.? Denies dyspnea. GASTROINTESTINAL: Denies abdominal pain, nausea, vomiting, diarrhea SKIN: Denies rash or itching. MUSCULOSKELETAL: Denies myalgia. NEUROLOGIC:reports frontal headache. All systems reviewed & are unremarkable except as noted in HPI and below PMFSH Past Medical History Medical History (Updated 01/11/25 @ 16:38 by Ese Garcia APRN) Cervical cancer Arthritis Depression Anxiety Surgical History Surgical History (Updated 01/11/25 @ 16:38 by Ese Garcia APRN) H/O right knee surgery H/O right shoulder surgery Social History Social History (Updated 01/11/25 @ 16:44 by Ese Garcia APRN) Smoking status: Unknown if ever smoked Alcohol use details: rare social Substance use type: does not use Gender identity (if verbalized by the patient): Female Comments At time of signature, agree with nursing past medical, surgical, social and family history. There is no relevant family history pertinent to the presenting complaint Exam Narrative: GENERAL: Well-appearing, well-nourished, and in no acute distress. HEAD: Normocephalic EYES: PERRLA, conjunctivae clear ENT: Nares clear, turbinates edematous and erythematous, clear to yellowish discharge, sinus pressure frontal headache. Mucous membranes moist. TM pearly llamas with dull light reflex bilaterally; no tragal tenderness. Oropharynx erythematous without lesions. Tonsils not enlarged and without exudate, no drooling, no hoarseness, no trismus, uvula midline.post nasal drainage NECK: Supple. No lymphadenopathy CHEST: Clear to auscultation, breath sounds equal. No wheezing, rhonchi, rales, or stridor. No respiratory distress, speaks in full sentences.SAO2 98% on room air HEART: Regular rate and rhythm. No murmur heard. SKIN: Warm, dry, no rash. NEURO: Alert and oriented x3. PSYCH: Normal mood and affect Course Course Emergency Course: Patient is aware of diagnosis, understands and agrees to treatment plan.? Anticipatory guidance given.? Patient agrees to follow-up as directed and is aware of reasons to seek care at the emergency department. Portions of this record may have been created with voice recognition software Level of Care: Express [facility] Visit Vital Signs Vital signs: Vital Signs Temperature 36.7 C 01/10/25 12:22 Pulse Rate 86 01/10/25 12:22 Respiratory Rate 18 01/10/25 12:22 Blood Pressure 111/75 01/10/25 12:22 Pulse Oximetry 98 01/10/25 12:22 Oxygen Delivery Room Air 01/10/25 12:22 Temperature 36.7 C 01/10/25 12:22 Pulse Rate 86 01/10/25 12:22 Respiratory Rate 18 01/10/25 12:22 Blood Pressure 111/75 01/10/25 12:22 Pulse Oximetry 98 01/10/25 12:22 Oxygen Delivery Room Air 01/10/25 12:22 Reviewed MDM - URI/Sore Throat MDM Narrative Medical decision making narrative: Differential diagnosis considered: Shultz virus, strep pharyngitis, allergic rhinitis, upper respiratory tract infection, sinusitis, rhinosinusitis, nasopharyngitis. viral pharyngitis, otitis media, otitis externa, pneumonia, bronchitis, viral cough syndrome, viral syndrome, and influenza.? Exam findings show no acute concerns or changes; patient is non-toxic appearing and is in no distress.? Patient is appropriate for outpatient treatment and follow-up. Differential Diagnosis Differential diagnosis: Likely upper respiratory infection, sinusitis, viral infection and other (cough) Medical Records Attestation: I reviewed the patient's medical records. Lab Data Attestation: I reviewed the patient's lab results. Critical Care Time Critical Care Time Critical Care Time: No Discharge Plan Discharge Clinical Impression: Bacterial sinusitis Patient Disposition: Home Condition: Stable Instructions: Antibiotic Form, Rhinosinusitis (ED) Additional Instructions: Increase fluids especially juices and water [id number]-ulj-[id number] cough and cold medicine of your choice for your symptoms Zyrtec Claritin or Niyah daily include plain Sudafed daily heat to the face 20-30 minutes 4-6 times a day for pain Salt water gargles, throat lozenges or throat sprays as desired Antibiotic as directed--finished the medication If your symptoms persist, change or worsen significantly before you can contact your personal physician then please, without delay, go to the emergency department for further evaluation. Follow-up with PCP in 7-10 days or sooner if needed Patient Language: Maltese Prescriptions: New doxycycline hyclate 100 mg tablet 100 mg PO BID Qty: 14 0RF Rx Instructions: take with food No Action bupropion HCl 300 mg tablet extended release 24 hr PO bupropion HCl 150 mg tablet sustained-release 12 hr PO lamotrigine 200 mg tablet 300 mg PO DAILY meloxicam 15 mg tablet 7.5 mg PO BID quetiapine 50 mg tablet See Rx Instructions .ROUTE .COMPLEX Rx Instructions: as prescribed Follow-up/Referrals: Elsi,Bambi Nelson CNP [Primary Care Provider] Time of Disposition: 12:52 Quality [place] Coma Scale Eyes: Open Verbal: Oriented and Alert Motor: Follows Commands Robbie Coma Total Score: 15
--- OUTSIDE RECORDS SUMMARY | 2025-01-10 13:30 | XMS_ITS | Encounter Summary ---
Author Organization [facility] Healthcare Address [address] [place] [address] Care Team Providers Care Machine Tool Builder Name Role Phone Unknown, Notinfile Unavailable Unavailable Bambi Calzada NP Primary Care Provider [phone] Jarett Salgado Unavailable Reason for Visit * Reason Onset Date Comments Knee Pain 12/06/2024 Encounter Details Date Type Department Care Team (Late st Contact Info) Description 12/06/2024 Nurse Triage [facility] Primary Care at [address] [place] [address] Bambi Calzada NP [address] [facility] [address] [place] [address] Social History Tobacco Use Types Packs/Day Years Used Date Smoking Tobacco: Former Cigarettes 1 30.4 1 995 - 07/20/2024 Smokeless Tobacco: Never Alcohol Use Standard Drinks/Week Comments Yes 2 (1 standard drink = 0.6 oz pur e alcohol) PHQ-2 Answer Date Recorded PHQ-2 Total Score (If total score is 3 or more points, staff should administer the PHQ-9) 0 06/17/2024 AUDIT-C Answer Date Recorded Q1: How often do you have a drink containing alc ohol? Never 12/06/2024 Average Number of Drinks Not on file 025 Frequency of Binge Drinking Not on file 11/11 Personal Safety Answer Date Recorded Have you ever been in or are you currently in a harmful physical or emotional relationship or is someone making you feel afraid or unsafe? Denies 11/17/2024 Comments No Sex and Gender Information Value Date Recorded Sex Assigned at Not on file Legal Sex Female 1:33 PM CDT Gender Identity Not on file Sexual Orientation Not on file documented as of this encounter Functional Status * Alcohol Use Question Answer Date of Assessment Author Q1: How often do you have a drink containing alcohol? Never 12/06/2024 8:45 AM CDT Grace Cavanaugh MA documented as of this encounter Miscellaneous Notes * Telephone Encounter - Altagracia Melvin MA - 12/06/2024 1:35 PM CDT Patient getting injection from [place] doctor [place] * Telephone Encounter - Cecilia Mueller RN - 12/06/2024 11:46 AM CDT Reason for Conversation Knee Pain Background Patient reports chronic left knee pain. Reports that pain has been severe x2 months; getting progressively worse. Reports there is swelling in the knee. Pain and swelling worse with walking. Reports elevating, icing and taking Motrin dual action for pain. Reports that she does have a prescription for Percocet for her shoulder that she has taken a few times. Reports that she has gotten steroid injections in the past. Patient is wanting to get a steroid injection in her knee as soon as possible. Reports that the claim would be through workman's compensation case. Advised message will be routed to PCP office for assistance; unsure if workman's compensation would be covered. Caller stated understanding. Routed to Bambi Calzada NP office. Patient wanting to schedule appointment with PCP for steroidinjection of left knee. Reports that claim would need to go through workman's compensation claim. Please advise if able to do this in office. Disposition See Today in Office Reason for Disposition SEVERE pain (e.g., excruciating, unable to walk) No Initial Assessment on file. No Additional Information on file. Protocols Used Knee [id number] * Telephone Encounter - Cecilia Mueller RN - 12/06/2024 11:39 AM CDT Regarding: Severe pain in left knee ----- Message from Brianna Gibbs sent at 12/06/2024 10:58 AM CDT ----- Symptom Based Call Chief Complaint(s): Severe pain in left knee Duration: 2 month, What type of symptom(s) is the patient experiencing? Red Flag. Is the patient concerned they are experiencing a medical emergency requiring an ambulance? No Additional Comments: Pt usually has injection through [facility] but cannot get in until Dec 27. Does message need to be routed? Yes-Action Needed documented in this encounter Plan of Treatment Upcoming Encounters Date Type Department Care Team (Late st Contact Info) Description 01/21/2025 11:00 AM COMPENSATION AND BENEFITS MANAGER Hospital Encounter [address] [address] Gustavo Harper MD [address] [place] [address] [address] [place] [address] 01/21/2025 11:00 AM COMPENSATION AND BENEFITS MANAGER - 01/21/2025 11:30 AM COMPENSATION AND BENEFITS MANAGER Surgery [address] [address] Gustavo Harper MD [address] [place] [address] [place] [address] COLONOSCOPY Scheduled Procedures Name Priority Associated Diagnoses Date/Ti nm COLONOSCOPY Screening for colon cancer 01/21/2025 11:00 AM COMPENSATION AND BENEFITS MANAGER documented as of this encounter Visit Diagnoses Not on filedocumented in this encounter Care Teams Machine Tool Builder Relationship Specialty Start Date End Date Bambi Calzada NP [address] [facility] [address] [place] [address] PCP - General Family Medicine 06/17/24 Unknown, Notinfile 05/11/24 Jarett Salgado PA [address] [facility] [address] [place] [address] Physician Retail Store Assistant Orthopedic Surgery 11/17/24 documented as of this encounter
--- OUTSIDE RECORDS SUMMARY | 2025-01-10 13:30 | XMS_ITS | Clinical Summary ---
Author Organization [facility] Address [address] [place] [address] Care Team Providers Care Astrophysics Professor Name Role Phone Unknown, Notinfile Unavailable Unavailable Bambi Calzada NP Primary Care Provider [phone] Jarett Salgado Unavailable [phone] Allergies No known active allergies Medications lamoTRIgine (LaMICtal) 200 mg tablet Take 1.5 tablets (300 mg total) by mouth 2 (two) times a day 270 tablet 3 06/18/19 25 026 Active ondansetron ODT (ZOFRAN-ODT) 4 mg disintegrating tablet Take 1 tablet (4 mg total) by mouth every 8 (eight) hours as needed for nausea 20 tablet 07/02/19 25 Active QUEtiapine (SEROquel) 50 mg tablet Take 1 tablet (50 mg total) by mouth nightly 90 tablet 3 07/22/19 25 026 Active buPROPion XL (WELLBUTRIN XL) 300 mg 24 hr tablet Take 1 tablet (300 mg total) by mouth every morning 90 tablet 3 07/22/19 25 026 Active SF 5000 Plus 1.1 % cream APPLY 1 UNIT TO TEETH DAILY 51 g 1 10/26/19 25 Active vitamin B complex capsule Take 1 capsule by mouth daily Active ascorbic acid (vitamin C) 1,000 mg tablet Take 1 tablet (1,000 mg total) by mouth daily Active cholecalciferol 25 mcg (1,000 unit) tablet Take 1 tablet (1,000 Units total) by mouth daily Active calcium carbonate (OS-JUANY) 648 mg (260 mg elemental) tablet Take 260 mg by mouth daily Active senna-docusate (PERICOLACE) 8.6-50 mg 1-2 times daily as needed for constipation 60 tablet 1 11/18/19 25 Active varenicline tartrate (CHANTIX RONNA) 0.5 mg (11)- 1 mg (42) tablet Use as directed on package instructions, try to quit smoking after 1 week. 53 tablet 11/30/19 25 026 Active oxyCODONE-acetamin ophen (PERCOCET) 5-325 mg per tabletIndications: Pain Take 1-2 tablets by mouth every 4 (four) hours as needed for pain 42 tablet 12/18/19 25 Active gabapentin (NEURONTIN) 300 mg capsule Take 1 capsule (300 mg total) by mouth 2 (two) times a day 60 capsule 12/18/19 25 Active meloxicam (MOBIC) 15 mg tablet Take 1 tablet (15 mg total) by mouth daily 30 tablet 12/18/19 25 025 Active naloxone (NARCAN) 4 mg/actuation spray,non-aerosol Administer 1 spray into affected nostril(s) as needed for opioid reversal or respiratory depression Call 911. Administer a single spray in one nostril. Repeat every 3 minutes as needed if no or minimal response. 1 each 12/18/19 25 Active LORazepam (ATIVAN) 1 mg tabletIndications: anxiety Take 1 tablet (1 mg total) by mouth once Take 60 minutes prior to your exam. Do not drive while taking this medication. 1 tablet 12/30/19 25 Active tiZANidine (ZANAFLEX) 4 mg tablet Take 1 tablet (4 mg total) by mouth every 6 (six) hours as needed for muscle spasms 30 tablet 01/01/20 25 Active meloxicam (MOBIC) 15 mg tablet Take 1 tablet (15 mg total) by mouth daily 90 tablet 3 07/22/19 25 025 Discontin ued(Reord er) oxyCODONE-acetamin ophen (PERCOCET) 5-325 mg per tabletIndications: Pain Take 1-2 tablets by mouth every 4 (four) hours as needed for pain 42 tablet 11/25/19 25 025 Discontin ued(Reord er) Active Problems Problem Noted Date Diagnosed Date Tear of right rotator cuff 11/10/2024 Arthritis of right acromioclavicular joint 11/10 Vertigo 08/21/2024 Assessment & Plan (08/21/2024 7:11 PM CDT): Chronic pain of left knee 07/21/2024 Assessment & Plan (07/21/2024 8:12 PM CDT): Cigarette nicotine dependence in remission 07/21 Assessment & Plan (07/21/2024 8:12 PM CDT): Encounter for weight management 06/17/2024 Assessment & Plan (08/21/2024 7:11 PM CDT): Assessment & Plan (07/21/2024 8:12 PM CDT): Assessment & Plan (06/17/2024 7:35 PM CDT): Arthralgia 06/17/2024 Assessment & Plan (06/17/2024 7:35 PM CDT): Chronic pain of both shoulders 06/17/2024 Assessment & Plan (08/18/2024 5:09 PM CDT): Orders: Ambulatory referral to Orthopedic Surgery Assessment & Plan (06/17/2024 7:35 PM CDT): Orders: Ambulatory referral to Orthopedic Surgery; Future Class 2 obesity without seri ous comorbidity with body mass index (BMI) of 37.0 to 37.9 in adult 06/17/2024 Assessment & Plan (08/21/2024 7:11 PM CDT): Assessment & Plan (07/21/2024 8:12 PM CDT): Assessment & Plan (06/17/2024 7:35 PM CDT): BMI 37.67. Discussed healthy diet, routine exercise and encouraged weight loss. Is already on bupropion and will add naltrexone in attempt to facilitate further weight loss. Need for hepatitis C screening test 06/16/2024 Assessment & Plan (06/17/2024 7:35 PM CDT): Chronic right shoulder pain 08/29/2022 Assessment & Plan (08/18/2024 5:09 PM CDT): I had a brief discussion with the patient today about her symptoms and her findings. After a quick discussion she did explain to me that she was more looking for a surgical option at this point. I did explain to her the options nonoperatively including some regenerative ideas, but the patient would like to pursue operative management at this point. I will get her scheduled with Dr. Granados for further consultation on this. Biliary dyskinesia 03/10/2020 Esophageal reflux 03/10/2020 Irritable [...] Polysubstance overdose 02/20/2019 Posttraumatic stress disorder 11/08/2011 Resolved Problems Problem Noted Date Diagnosed Date Resolved Date [facility]/16/2024 08/21/2024 Assessment & Plan (06/17/2024 7:35 PM CDT): Encounters Date Type Department Care Team Description 01/04/2025 Orders Only [facility] Sports Medicine and Primary Care at [address] [place] [address] Keyur Granados MD S/P arthroscopy of right shoulder (Primary Dx) 01/03/2025 10:45 AM MEDICAL RECEPTION Office Visit [facility] Orthopedics and Sports Medicine [address] [place] [address] [address] [place] [phone] Keyur Granados MD Loose body in right shoulder (Primary Dx); Fall, initial encounter 01/03/2025 Telephone [facility] Orthopedics and Sports Medicine [address] [place] [address] [address] [place] [address] Keyur Granados MD Surgery Clearance 12/31/2024 1:13 PM MEDICAL RECEPTION - 12/31/2024 11:59 PM MEDICAL RECEPTION Hospital Encounter [facility] [address] [place] [address] S/P right rotator cuff repair; Traumatic rotator cuff tear, right, initial encounter; S/P arthroscopy of right shoulder Discharge Disposition: Discharge to home or self care 12/31/2024 Results Follow-Up [facility] Orthopedics and Sports Medicine [address] [place] [address], [place] [address] Rodrick Guy PA MRI Shoulder Right WO Contrast 12/29/2024 Telephone [facility] Orthopedics and Sports Medicine [address] [place] [address] [address], [place] [address] Keyur Granados MD 12/29/2024 Orders Only [facility] Medical [facility] Orthopedic and Sports Medicine [address] [place] [phone] Jarett Salgado PA 12/22/2024 Telephone [facility] Orthopedics and Sports Medicine [address] [place] [address] [address], [place] [phone] Keyur Granados MD MRI right shoulder 12/17/2024 3:45 PM MEDICAL RECEPTION Office Visit [facility] Orthopedics and Sports Medicine [address] [place] [address] [address] [place] [phone] Rodrick Guy PA Traumatic rotator cuff tear, right, initial encounter (Primary Dx); S/P right rotator cuff repair; S/P arthroscopy of right shoulder; Spasm of right trapezius muscle 12/17/2024 7:45 AM MEDICAL RECEPTION - 12/17/2024 11:59 PM MEDICAL RECEPTION Hospital Encounter [facility] Orthopedics and Sports Medicine [address] [place] [address] [address] [place] [address] Discharge Disposition: Discharge to home or self care 12/17/2024 Orders Only [facility] Orthopedics and Sports [address] [place] [address] Rodrick Guy PA S/P right rotator cuff repair (Primary Dx); Traumatic rotator cuff tear, right, initial encounter; S/P arthroscopy of right shoulder 12/14/2024 7:58 PM MEDICAL RECEPTION - 12/14/2024 8:01 PM MEDICAL RECEPTION Emergency [facility] Emergency Department [address] [place] [address] Discharge Disposition: Left without being seen 12/10/2024 Telephone [facility] Gastroenterology at [address] [place] [address] Charlene Hopson Prep Instructions 12/08/2024 7:45 AM CDT Therapy [facility] Physical [place] [address] Valentin Romero, PT S/P arthroscopy of right shoulder (Primary Dx) 12/06/2024 1:00 PM CDT Therapy [facility] Physical [place] [address] Fabian Bowers, PT S/P arthroscopy of right shoulder (Primary Dx) 12/06/2024 8:30 AM CDT Office Visit [facility] Orthopedic and Sports Medicine [address] [place] [phone] Jarett Salgado PA Aftercare following surgery of the musculoskeletal system (Primary Dx); S/P arthroscopy of right shoulder; S/P rotator cuff repair 12/06/2024 Nurse Triage [facility] Primary Care at [address] [place] [address] Bambi Calzada, INSTRUCTOR BUSINESS EDUCATION 12/03/2024 5:00 PM CDT Therapy [facility] [address] Valentin Romero, PT S/P arthroscopy of right shoulder (Primary Dx) 11/30/2024 7:45 AM CDT Therapy [facility] [place] [address] Valentin Romero, PT S/P arthroscopy of right shoulder (Primary Dx) 11/29/2024 Orders Only [facility] Primary Care at [address] [place] [address] Bambi Calzada, INSTRUCTOR BUSINESS EDUCATION 11/24/2024 8:00 AM CDT Therapy [facility] [place] [address] Madi Leblanc, PT S/P arthroscopy of right shoulder 11/24/2024 Orders Only [facility] Primary Care at [address] [place] [address] Bambi Calzada, INSTRUCTOR BUSINESS EDUCATION 11/24/2024 Plan of Care Documentation [facility] [place] [address] 11/18/2024 Telephone [facility] Orthopedic and Sports Medicine [facility] [place] [phone] Fadia Napoles PA 11/18/2024 Telephone [facility] Orthopedics and Sports Medicine [address] [facility] [address] [place] [phone] Osmar Tellez ATC Day 1 Post Op Call 11/17/2024 10:40 AM CDT Anesthesia Event [facility] Operating Room [address] [place] [address] Eleuterio Andrade MD 11/17/2024 10:20 AM CDT - 11/17/2024 12:30 PM CDT Surgery [facility] Operating Room [address] [place] [address] Keyur Granados MD RIGHT SHOULDER ARTHROSCOPY WITH DISTAL CLAVICLE EXCISION, ROTATOR CUFF REPAIR WITH ROTATOR CUFF ALLOGRAFT 11/17/2024 7:36 AM CDT - 11/17/2024 2:30 PM CDT Hospital Encounter [facility] Operating Room [address] [place] [address] Keyur Granados MD Arthritis of right acromioclavicular joint [M19.011] (Primary Dx); Tear of right rotator cuff, unspecified tear extent, unspecified whether traumatic [M75.101] Discharge Disposition: Discharge to home or self care 11/16/2024 Telephone [facility] Orthopedics and Sports Medicine [address] [place] [address] Keyur Granados MD 11/15/2024 3:00 PM CDT Office Visit [facility] Medical Group Primary Care at [address] [phone] Jackie Malloy NP Preop examination (Primary Dx); Chronic right shoulder pain 11/11/2024 Telephone [facility] Primary Care at [address] [address] Bambi Calzada NP 11/10/2024 Orders Only [facility] Orthopedics and Sports Medicine [address] [place] [phone] Keyur Granados MD Tear of right rotator cuff, unspecified tear extent, unspecified whether traumatic (Primary Dx); Arthritis of right acromioclavicular joint 10/30/2024 9:07 AM CDT - 10/30/2024 10:01 AM CDT Emergency [facility] Emergency Department [address] [place] [address] Insect bite, multiple (Primary Dx) Discharge Disposition: Discharge to home or self care from Last 3 Months Immunizations Immunization Administration Dates Next Due Influenza, Unspecified 11/12/2024(Deferred: Lesley ent Refused) [employer] SARS-CoV-2 Vaccination 09/05/2020 Tdap 03/31/2019 Surgical History Surgery Date Site/Laterality Comments FLUORO GUIDED ASPIRATION OR INJECTION LARGE JOINT BILATERAL 05/03/2022 Bilateral FLUORO GUIDED ASPIRATION OR INJECTION LARGE JOINT BILATERAL 03/08/2020 Bilateral FLUORO GUIDED ASPIRATION OR INJECTION LARGE JOINT BILATERAL 10/07/2019 Bilateral FLUORO GUIDED ASPIRATION OR INJECTION LARGE JOINT BILATERAL 03/31/2019 Bilateral US GUIDED THORACENTESIS 05/15/2020 N/A US GUIDED THORACENTESIS 03/10/2020 N/A CHOLECYSTECTOMY 02/10/2018 - 02/09/2019 JOINT REPLACEMENT 02/10/2019 - 02/10/2020 Right total knee replacement TUBAL LIGATION 02/10/1999 - 02/10/2000 SHOULDER ARTHROSCOPY 02/10/2022 - 02/09/2023 Right CERVICAL BIOPSY W/ LOOP ELECTRODE EXCISION 02/10/1999 - 02/10/2000 Medical History Medical History Date Comments Substance abuse (HCC) Hx of poly substance abuse with overdose Anxiety Depression Menstrual problem Bipolar disorder Irritable bowel syndrome PTSD (post-traumatic stress disorder) Vertigo Migraine Cancer (HCC) Cervical cancer Family History Medical History Relation Name Comments Alcohol abuse Mother Leukemia Mother Relation Name Status Comments Mother Social History Tobacco Use Types Packs/Day Years Used Date Smoking Tobacco: Former Cigarettes 1 30.4 1 995 - 07/20/2024 Smokeless Tobacco: Never Tobacco Cessation:Counseling Given: Not Answered Alcohol Use Standard Drinks/Week Comments Yes 2 (1 standard drink = 0.6 oz pur e alcohol) PHQ-2 Answer Date Recorded PHQ-2 Total Score (If total score is 3 or more points, staff should administer the PHQ-9) 0 06/17/2024 AUDIT-C Answer Date Recorded Q1: How often do you have a drink containing alc ohol? Never 12/17/2024 Average Number of Drinks Not on file 025 Frequency of Binge Drinking Not on file 08/2024 Personal Safety Answer Date Recorded Have you ever been in or are you currently in a harmful physical or emotional relationship or is someone making you feel afraid or unsafe? Denies 12/14/2024 Comments No Sex and Gender Information Value [...] Sign Reading Time Taken Comments Blood Pressure 114/74 01/03/2025 10:48 AM MEDICAL RECEPTION Pulse 80 01/03/2025 10:48 AM MEDICAL RECEPTION Temperature 36.5 C (97.7 F) 12/14/2024 5:39 PM MEDICAL RECEPTION Respiratory Rate 18 12/14/2024 5:39 PM MEDICAL RECEPTION Oxygen Saturation 94% 12/14/2024 5:39 PM MEDICAL RECEPTION Inhaled Oxygen Concentration - - Weight 110.2 kg (243 lb) 01/03/2025 10:48 AM MEDICAL RECEPTION Height 165.1 cm (5' 5) 01/03/2025 10:48 AM MEDICAL RECEPTION Body Mass Index 40.44 01/03/2025 10:48 AM MEDICAL RECEPTION Plan of Treatment Upcoming Encounters Date Type Department Care Team (Late st Contact Info) Description 01/21/2025 11:00 AM MEDICAL RECEPTION Hospital Encounter [address] [address] Gustavo Harper MD [address] [place] [address] [place] [address] 01/21/2025 11:00 AM MEDICAL RECEPTION - 01/21/2025 11:30 AM MEDICAL RECEPTION Surgery [address] [address] Gustavo Harper MD [address] [place] [address] [address] [place] [address] COLONOSCOPY Scheduled Procedures Name Priority Associated Diagnoses Date/Ti me COLONOSCOPY Screening for colon cancer 01/21/2025 11:00 AM MEDICAL RECEPTION Health Maintenance Due Date Last Done Comments Breast Cancer Screening-Mammogram 1980 Cervical Cancer Screening 1980 Covid-19 Vaccine (2 - 2024-2 6 season) 2024 09/05/2020 Colon Cancer Screening-Colonoscopy 01/21/2025 Postponed from (Patient declined, but will receive in the future) Depression Screening 06/17/2025 06/17/2024 Regular Well Visit/Exam 18-64 06/17/2025 06/17/2024 Influenza Vaccine (#1) 2025 Postp oned from 10/11/2024 (Patient declined, but will receive in the future) DTaP/Tdap/Td Vaccine (2 - Td or Tdap) 03/31/2029 03/31/2019 Hepatitis B Screening Completed 08/20/2024 Hepatitis C Screening Completed 08/20/2024 Colon Cancer Screening-DNA Stool Discontinued HPV Vaccines Aged Out No longer eligi ble based on patient's age to complete this topic Pneumococcal vaccine <65 Aged Out No longer eligible based on patient's age to complete this topic Medical Devices Implanted Type Area M1A1 Tank Crewman Device Identifier Shelf Expiration Date Model / Serial / Lot [employer] Screw Bone Straight Soft Poly Strl [id number] - Sn/A - [id number] Implanted:Qty: 1 on 11/17/2024 by Keyur Granados MD at [facility] Screw Right: Shoulder [employer] 02/10/2028 [id number] S / N/A / [id number] Joint Right: Knee Lifenet Graft Tissue Decellularized Dermis 1.76 2.25mm Arthroflex [id number] - [id number] - [id number] Implanted:Qty: 1 on 11/17/2024 by Keyur Granados MD at [facility] Right: Shoulder [employer] 05/14/2027 [id number] / [id number] / Description:CODE:[id number] [employer] Daphne Suture 3.5mm Pushlock Biocompos Strl [id number] - [id number] Implanted:Qty: 3 on 11/17/2024 by Keyur Granados MD at [facility] Right: Shoulder [employer] 05/10/2028 [id number] CSP / / [id number] [employer] Suture Daphne Curved Fiberstitch Size 2-0 Ar-[id number] - [id number] Implanted:Qty: 2 on 11/17/2024 by Keyur Granados MD at [facility] Right: Shoulder [employer] 11/10/2027 [id number] C / / [id number] [employer] Suture Daphne Knotless Fibertak 2.6mm Ar-[id number] - [id number] Implanted:Qty: 1 on 11/17/2024 by Keyur Granados MD at [facility] Right: Shoulder [employer] [id number] 04/09/2029 [id number] P / / [id number] Procedures Procedure Name Priority Date/Time Associated Diagnosis Comments MRI SHOULDER RIGHT WO CONTRAST Schedule OLINDA, Read OLINDA (Appt Today, Awaiting Results) 12/31/2024 2:18 PM MEDICAL RECEPTION S/P right rotator cuff repair Traumatic rotator cuff tear, right, initial encounter S/P arthroscopy of right shoulder XR SHOULDER RIGHT 1 VIEW Schedule Routine, Read Routine (OP Routine) 12/17/2024 3:51 PM MEDICAL RECEPTION S/P right rotator cuff repair XR HUMERUS RIGHT 2 OR MORE VIEWS ED 12/14/2024 5:58 PM MEDICAL RECEPTION XR SHOULDER RIGHT 2 OR MORE VIEWS ED 12/14/2024 5:58 PM MEDICAL RECEPTION ME AN ELECTIVE ENDOTRACHEAL AIRWAY Routine 11/17/2024 11:11 AM CDT ARTHROSCOPY SHOULDER 11/17/2024 10:19 AM CDT Tear of right rotator cuff, unspecified tear extent, unspecified whether traumatic Arthritis of right acromioclavicular joint ANESTHESIA PERIPHERAL BLOCK Routine 11/17/2024 9:23 AM CDT PAIN BLOCK Routine 11/17/2024 8:03 AM CDT HEPATITIS C ANTIBODY Routine 08/20/2024 11:06 AM CDT Encounter for hepatitis C screening test for low risk patient from Last 3 Months or Most Recently Relevant to Health Maintenance Results * MRI Shoulder Right WO Contrast (12/31/2024 2:18 PM MEDICAL RECEPTION) Anatomical Region Laterality Modality Upper Extremities Right Magnetic Reson ance 12/31/2024 2:57 PM MEDICAL RECEPTION Impressions 12/31/2024 2:57 PM MEDICAL RECEPTION 1. Interval revision right rotator cuff repair with intact fibers extending down to the repair site. Residual thin linear full-thickness defect of the mid supraspinatus is present. 2. Interval right subacromial decompression with distal clavicular excision. Moderate subacromial subdeltoid bursitis. 3. Displaced suture anchor at the right superior glenoid tubercle. 4. Minimal right glenohumeral joint chondrosis with a small shoulder effusion and synovitis. Electronically signed by: Willie Thomas M.D. Narrative 12/31/2024 2:57 PM MEDICAL RECEPTION EXAMINATION: 1. MRI right shoulder without contrast HISTORY: Right shoulder pain, rotator cuff tear COMPARISON: Radiograph 12/14/2024, MR 04/01/2024 FINDINGS: Multiplanar multisequence MR examination of the right shoulder was performed with a local coil. Interval subacromial decompression and distal clavicular excision. There is moderate subacromial subdeltoid bursitis. Mild chronic atrophy of the musculature. The subscapularis is intact. Interval biceps tenodesis. Interval revision right rotator cuff repair. The repaired cuff is tendinopathic. Intact fibers are present extending down to the repaired site. Residual full-thickness thin linear defect of the mid supraspinatus. Fraying of the superior glenoid labrum is present. A displaced suture anchor is present at the superior glenoid tubercle. The labrum below the equator is normal. Minimal inferior glenohumeral chondrosis. Small shoulder effusion is present with mild synovitis. Procedure Note Willie Thomas MD - 12/31/2024 EXAMINATION: 1. MRI right shoulder without contrast HISTORY: Right shoulder pain, rotator cuff tear COMPARISON: Radiograph 12/14/2024, MR 04/01/2024 FINDINGS: Multiplanar multisequence MR examination of the right shoulder was performed with a local coil. Interval subacromial decompression and distal clavicular excision. There is moderate subacromial subdeltoid bursitis. Mild chronic atrophy of the musculature. The subscapularis is intact. Interval biceps tenodesis. Interval revision right rotator cuff repair. The repaired cuff is tendinopathic. Intact fibers are present extending down to the repaired site. Residual full-thickness thin linear defect of the mid supraspinatus. Fraying of the superior glenoid labrum is present. A displaced suture anchor is present at the superior glenoid tubercle. The labrum below the equator is normal. Minimal inferior glenohumeral chondrosis. Small shoulder effusion is present with mild synovitis. IMPRESSION: 1. Interval revision right rotator cuff repair with intact fibers extending down to the repair site. Residual thin linear full-thickness defect of the mid supraspinatus is present. 2. Interval right subacromial decompression with distal clavicular excision. Moderate subacromial subdeltoid bursitis. 3. Displaced suture anchor at the right superior glenoid tubercle. 4. Minimal right glenohumeral joint chondrosis with a small shoulder effusion and synovitis. Electronically signed by: Willie Thomas M.D. Rodrick GARCÍA IMG MRI PROCEDURES Fin al Result * XR Shoulder Right 1 View (12/17/2024 3:51 PM MEDICAL RECEPTION) Anatomical Region Laterality Modality Upper Extremities, Shoulder Right Digi jessica Radiography Narrative 12/17/2024 3:59 PM MEDICAL RECEPTION Axillary view of the right shoulder reviewed and interpreted today. No evidence of fracture or dislocation. Rodrick GARCÍ[place] [facility] [place]ED[place] Rylee l Result * XR Humerus Right 2 or More Views (12/14/2024 5:58 PM MEDICAL RECEPTION) Anatomical Region Laterality Modality Upper Extremities, Upper Arm Right Com puted Radiography 12/14/2024 6:29 PM MEDICAL RECEPTION Impressions 12/14/2024 6:29 PM MEDICAL RECEPTION No acute fracture or dislocation. Electronically signed by: Travis Morocho M.D. Narrative 12/14/2024 6:29 PM MEDICAL RECEPTION EXAMINATION: XR SHOULDER RIGHT 2 OR MORE VIEWS, XR HUMERUS RIGHT 2 OR MORE VIEWS HISTORY: pain, fell onto left shoulder after recent surgery. TECHNIQUE: 4View of the right shoulderwas obtained. Right humerus 2 views COMPARISON: Right humerus 2 views FINDINGS: BONES: There is no acute fracture. JOINT SPACES: Joint spaces are preserved. No articular or periarticular erosions seen. OTHER:No abnormal periosteal reaction is seen. SOFT TISSUES:The soft tissues appear unremarkable. Procedure Note Travis Morocho MD - 12/14/2024 EXAMINATION: XR SHOULDER RIGHT 2 OR MORE VIEWS, XR HUMERUS RIGHT 2 OR MORE VIEWS HISTORY: pain, fell onto left shoulder after recent surgery. TECHNIQUE: 4View of the right shoulderwas obtained. Right humerus 2 views COMPARISON: Right humerus 2 views FINDINGS: BONES: There is no acute fracture. JOINT SPACES: Joint spaces are preserved. No articular or periarticular erosions seen. OTHER:No abnormal periosteal reaction is seen. SOFT TISSUES:The soft tissues appear unremarkable. IMPRESSION: No acute fracture or dislocation. Electronically signed by: Travis Morocho M.D. Jasmine GARCÍA IM XR PROCEDURES Final Result * XR Shoulder Right 2 or More Views (12/14/2024 5:58 PM MEDICAL RECEPTION) Anatomical Region Laterality Modality Upper Extremities, Shoulder Right Comp uted Radiography 12/14/2024 6:29 PM MEDICAL RECEPTION Impressions 12/14/2024 6:29 PM MEDICAL RECEPTION No acute fracture or dislocation. Electronically signed by: Travis Morocho M.D. Narrative 12/14/2024 6:29 PM MEDICAL RECEPTION EXAMINATION: XR SHOULDER RIGHT 2 OR MORE VIEWS, XR HUMERUS RIGHT 2 OR MORE VIEWS HISTORY: pain, fell onto left shoulder after recent surgery. TECHNIQUE: 4View of the right shoulderwas obtained. Right humerus 2 views COMPARISON: Right humerus 2 views FINDINGS: BONES: There is no acute fracture. JOINT SPACES: Joint spaces are preserved. No articular or periarticular erosions seen. OTHER:No abnormal periosteal reaction is seen. SOFT TISSUES:The soft tissues appear unremarkable. Procedure Note Travis Morocho MD - 12/14/2024 EXAMINATION: XR SHOULDER RIGHT 2 OR MORE VIEWS, XR HUMERUS RIGHT 2 OR MORE VIEWS HISTORY: pain, fell onto left shoulder after recent surgery. TECHNIQUE: 4View of the right shoulderwas obtained. Right humerus 2 views COMPARISON: Right humerus 2 views FINDINGS: BONES: There is no acute fracture. JOINT SPACES: Joint spaces are preserved. No articular or periarticular erosions seen. OTHER:No abnormal periosteal reaction is seen. SOFT TISSUES:The soft tissues appear unremarkable. IMPRESSION: No acute fracture or dislocation. Electronically signed by: Travis Morocho M.D. Jasmine GARCÍA IMG XR PROCEDURES Final Result * ME AN ELECTIVE ENDOTRACHEAL AIRWAY (11/17/2024 11:11 AM CDT) Narrative Xochitl Demarco CRNA - 11/17/2024 11:11 AM CDT Xochitl Demarco CRNA 11/17/2024 11:11 AM Airway Patient location: OR Urgency: elective Indications for airway management: anesthesia and airway protection Difficult airway: no Staff: Placed by: RN POOL: Xochitl Demarco CRNA Emergent airway documentation: Risks and benefits discussed: yes Consent obtained: yes Consent given by: patient Airway prep: Preoxygenated: yes Patient position: sniffing Mask difficulty assessment: 1 - vent by mask Sedation level during airway: GA Final airway details: Final airway type: endotracheal airway Tube type: ETT ETT size: 6.5 mm Cuffed: yes Technique used for successful ETT placement: video laryngoscopy Devices/Methods used in placement: intubating stylet Insertion site: oral Video blade type: Oleary Blade size: 3 Cormack-Lehane (direct): grade I - full view of glottis Cuff volume: 6 mL Cuff inflated with: air ETT to lips: 21 cm Placement verified by: auscultation Airway secured with: silk tape Number of attempts: 1 us Eleuterio Andrade MD ANESTHESIA ORDERABLES Final Result * BW IP ANE LDA PERIPHERAL NERVE CATHETER (11/17/2024 9:23 AM CDT) Narrative Eleuterio Andrade MD - 11/17/2024 9:23 AM CDT Eleuterio Andrade MD 11/17/2024 9:24 AM Peripheral Block Patient location during procedure: block room Start time: 11/17/2024 9:05 AM End time: 11/17/2024 9:20 AM Reason for block: post-op pain management per surgeon request Ultrasound image in chart or stored: yes Block type: catheter continuous infusion Laterality: right Block type: brachial plexus - interscalene Staff: Placed by: Anesthesiologist: Eleuterio Andrade MD Procedure prep: Preprocedure checklist: patient identified, procedure contraindications assessed, site marked, procedure consent, surgical consent, IV checked, risks, benefits and alternatives discussed, monitors and equipment checked and timeout performed Patient position: supine and head of bed elevated Procedure performed while patient: sedate with meaningful contact Monitoring: ECG, oximetry and blood pressure Supplemental O2: nasal cannula Prep solution: chlorhexidine/alcohol PPE: provider hat/mask, sterile gloves, sterile drape and sterile probe cover and gel Skin infiltrated with lidocaine 1%: yes Peripheral nerve block: Technique: ultrasound guided Needle type: insulated Needle length: 100 mm Injection assessment: injection made incrementally with constant monitoring, local visualized surrounding nerve on ultrasound, negative aspiration for heme, no paresthesias noted and see flowsheet for medication details Catheter: Catheter type: 20g non-stimulating catheter Needle depth at target: 6 cm Catheter depth at skin: 6 cm Catheter placement details: catheter position confirmed by ultrasound, no aspiration of heme, steri-strips, dermal adhesive and occlusive dressing applied Assessment: Block success: full evaluation pending Events: patient tolerated procedure well with no complications Result [facility] Eleuterio Andrade MD ANESTHESIA ORDERABLES Final Result * Hepatitis C antibody Blood (08/20/2024 11:06 AM CDT) Hep C Ab Nonreactive Nonreactive Comment: Interpretive Data Nonreactive: Antibodies to HCV not detected. Does NOT exclude the possibility of recent exposure to HCV. Equivocal: Equivocal for HCV antibodies. Supplemental molecular testing will be automatically performed to determine infection status in accordance with current CDC screening recommendations. Reactive: Positive for HCV antibodies. This may represent current or past HCV infection. Supplemental molecular testing will be automatically performed to determine current infection status in accordance with current CDC screening recommendations. Interpretive data was last revised on 2019. 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
== END 2025-01-10 13:00 | disposition home or self-care (01) ==
PROVIDERS: Emergency Provider Registered Nurse; PCP Nurse Practitioner
DX: J32.9 Chronic sinusitis, unspecified (principal); M19.90 Unspecified osteoarthritis, unspecified site; F41.9 Anxiety disorder, unspecified; F32.A Depression, unspecified; Z85.41 Personal history of malignant neoplasm of cervix uteri
CPT/HCPCS: 99213; G0463